=== PATIENT | male | born 1935 | race Caucasian/White ===

== ENCOUNTER 2017-06-23 01:17 | Inpatient (IN) | payer OTHER ==
[~2017-06-23] VITALS: Ht 180.3 cm; Wt 69.9 kg
[2017-06-23] VITALS (12 sets, daily range): BP systolic 123–142; BP diastolic 63–81; PULSE 66–132; TEMP 36.4–37; O2SAT 92–99; Ht 180.3 cm; Wt 69.9 kg
[~2017-06-23 01:17] MED LIST: CYAN500T13 PO; CZR25 PO; DILT40TA2 PO; FRRG PO; INSDGI SC; JNVUNK PO
[2017-06-23] MEDS ORDERED: GI COCKTAIL PO STA (01:39)
[2017-06-23] MEDS ORDERED: RANITIDINE HCL SYRUP 150 MG/10 ML UDC PO ONE (01:45)
[2017-06-23] MEDS ORDERED: PANT40TA PO (01:55)
[2017-06-23] MEDS ORDERED: METO25TA3 PO (01:55)
[2017-06-23] MEDS ORDERED: INSDGIPEN SC (01:55)
[2017-06-23] MEDS ORDERED: VALS40TA2 PO (01:57)
[2017-06-23] MEDS ORDERED: FRS/40 PO (01:57)
[2017-06-23] MEDS ORDERED: METO5TAB5 PO (01:57)
[2017-06-23] MEDS ORDERED: DOCU-94 PO (01:58)
[2017-06-23] MEDS ORDERED: CYAN500T13 PO (01:58)
[2017-06-23] MEDS ORDERED: UMEC1AER PO (01:58)
[2017-06-23] MEDS ORDERED: IRONCAP18 PO (01:59)
[2017-06-23] MEDS ORDERED: VGR50 PO (01:59)
[2017-06-23 02:09] LABS: INR 1.2 (0.9-1.1); PARTIAL THROMBOPLASTIN RATIO 1.2; PROTHROMBIN TIME (PATIENT) 13.3 SECONDS (9.0-12.0)
--- NOTE | 2017-06-23 02:10 | EMERGENCY ROOM VISIT NOTE ---
History Report prepared by Sunitha: Al Marina Under the Supervision of: Dr. Dominic Srivastava M.D. First contact with patient: 01:21 Stated Complaint: RECTAL BLEED, NOSE BLEED, ANEMIA History of Present Illness The patient is a 81 year old male who presents to the Emergency Room with complaints of intermittent rectal bleeding beginning about a year ago. He has a history of Von-Willebrand's Disease and estimates that he has some rectal bleeding every four months or so. He was seen at the [facility] ED for a bloody nose, and was transferred to the [facility] ED upon mentioning that he has been having rectal bleeding. The patient was found to have a hemoglobin of 7.4. He denies any nausea, vomiting, chest pain, abdominal pain, or SOB. He states that his current rectal bleeding began a few hours ago this evening. The patient states that his most recent endoscopy and colonoscopy were around five months ago. Source of History: patient Onset: About a year ago Position: other (rectum) Symptom Intensity: Hemoglobin of 7.4 Quality: other (bleeding) Timing: intermittent Associated Symptoms: No chest pain, No SOB, No nausea, No vomiting, No abdominal pain Review of Systems See HPI for pertinent positives & negatives. A total of 10 systems reviewed and were otherwise negative. 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 Social History Alcohol Use: occasionally Housing Status: lives with family Occupation Status: employed Current/Historical Medications Scheduled Cyanocobalamin (Vitamin B12 500MCG), 500 MCG PO DAILY Docusate Sodium (Colace), 1 CAP PO BID Furosemide (Lasix), 40 MG PO DAILY Insulin Glargine (Lantus Solostar), 20 UNITS SC QPM Iron W/ Folic Acid & Vit B12 (Iron Formula), 65 MG PO DAILY Metolazone (Zaroxolyn), 5 MG PO WK Metoprolol Succ (Toprol Xl) (Toprol-Xl), 25 MG PO DAILY Pantoprazole (Protonix), 40 MG PO DAILY Umeclidinium-Vilanterol (Anoro Ellipta 62.5-25 Mcg/INH), 1 INHA PO DAILY Valsartan (Diovan), 40 MG PO DAILY Scheduled PRN Sildenafil Citrate (Viagra), 50 MG PO UD PRN for UNDECIDED Allergies Coded Allergies: No Known Allergies (Verified , 06/23/17) Physical Exam Vital Signs Date Time Temp Pulse Resp B/P (MAP) Pulse Ox O2 Delivery O2 Flow Rate FiO2 06/23/17 02:31 103 23 128/84 94 Room Air 06/23/17 02:17 110 20 97 Room Air 06/23/17 02:02 99/66 06/23/17 01:47 117 22 92 Room Air 06/23/17 01:31 102 06/23/17 01:28 122 18 121/83 95 Room Air 06/23/17 01:23 121/83 Physical Exam GENERAL: Patient is well appearing and in no acute distress. HEENT: No acute trauma, normocephalic atraumatic, mucous membranes moist, no nasal congestion, no scleral icterus. left nares Rhino Rocket in place. NECK: No stridor, no adenopathy, no meningismus, trachea is midline. LUNGS: No dyspnea. Clear to auscultation and equal bilaterally. No wheeze, no rhonchi. HEART: Tachycardic rate with an irregular rhythm. No murmurs, rubs, gallops appreciated. ABDOMEN: Soft, nontender, bowel sounds positive, no masses appreciated, no peritonitis. BACK: No midline tenderness, no CVA tenderness EXTREMITIES: Normal motion all extremities, no cyanosis, no edema. Peripheral vascular disease. NEUROLOGIC: Alert and oriented, no acute motor or sensory deficits, no focal weakness, cranial nerves grossly intact. SKIN: No rash, no jaundice, no diaphoresis. Medical Decision & Procedures Laboratory Results 06/23/17 01:44 Red Blood Count 2.19, Mean Corpuscular Volume 94.5, Mean Corpuscular Hemoglobin 31.5, Mean Corpuscular Hemoglobin Concent 33.3, Mean Platelet Volume 10.9, Neutrophils (%) (Auto) 85.6, Lymphocytes (%) (Auto) 7.6, Monocytes (%) (Auto) 5.8, Eosinophils (%) (Auto) 0.4, Basophils (%) (Auto) 0.2, Neutrophils # (Auto) 4.30, Lymphocytes # (Auto) 0.38, Monocytes # (Auto) 0.29, Eosinophils # (Auto) 0.02, Basophils # (Auto) 0.01 06/23/17 01:44 Test 06/23/17 01:44 White Blood Count 5.02 K/uL (4.8-10.8) Red Blood Count 2.19 M/uL (4.7-6.1) Hemoglobin 6.9 g/dL (14.0-18.0) Hematocrit 20.7 % (42-52) Mean Corpuscular Volume 94.5 fL (80-100) Mean Corpuscular Hemoglobin 31.5 pg (25-34) Mean Corpuscular Hemoglobin Concent 33.3 g/dl (32-36) Platelet Count 61 K/uL (130-400) Mean Platelet Volume 10.9 fL (7.4-10.4) Neutrophils (%) (Auto) 85.6 % Lymphocytes (%) (Auto) 7.6 % Monocytes (%) (Auto) 5.8 % Eosinophils (%) (Auto) 0.4 % Basophils (%) (Auto) 0.2 % Neutrophils # (Auto) 4.30 K/uL (1.4-6.5) Lymphocytes # (Auto) 0.38 K/uL (1.2-3.4) Monocytes # (Auto) 0.29 K/uL (0.11-0.59) Eosinophils # (Auto) 0.02 K/uL (0-0.5) Basophils # (Auto) 0.01 K/uL (0-0.2) RDW Standard Deviation 50.9 fL (36.4-46.3) RDW Coefficient of Variation 14.9 % (11.5-14.5) Immature Granulocyte % (Auto) 0.4 % Immature Granulocyte # (Auto) 0.02 K/uL (0.00-0.02) Platelet Estimate DECREASED Red Blood Cell Morphology Unremarkable Prothrombin Time 13.3 SECONDS (9.0-12.0) Prothromb Time International Ratio 1.2 (0.9-1.1) Activated Partial Thromboplast Time 31.0 SECONDS (21.0-31.0) Partial Thromboplastin Ratio 1.2 Anion Gap 6.0 mmol/L (3-11) Estimated GFR () 26.7 Estimated GFR (Non- 23.0 BUN/Creatinine Ratio 25.8 (10-20) Calcium Level 8.2 mg/dl (8.5-10.1) Troponin I 0.017 ng/ml (0-0.045) Beta-Hydroxybutyric Acid 9.67 mg/dL (0.2-2.81) Laboratory results as reviewed by me. ECG Indication: other (Rectal bleed) Rate (beats per minute): 111 Rhythm: atrial fibrillation (with RVR) Findings: no acute ischemic change ED Course 0120: The patient was evaluated in room A9B. A complete history and physical exam was performed. 0146: I reassessed the patient. He is feeling fine. His heart rate is in the 90' s and irregular. 0205: Upon reevaluation, the patient is resting comfortably. Discussed results and treatment plan with the patient. He verbalized understanding and agreement with the treatment plan. The patient will be evaluated for further management. Medical Decision Differential: Diverticulitis, AVM, Coagulopathy, Colitis, Malignancy, Upper GI bleed, Fissure, Hemorrhoids, amongst other pathologies entertained. 81 yr old male arrives from local hospital for evaluation of anemia. Long history of anemia with known VWF and every 4 to 5 months requires transfusion ( which is about how long last transfusion is). Noted anemia at ED visit after being seen for left nares epistaxis and noting single episode of blood in stool. Unable to be treated at OSH thus transferred here for further evaluation as [place] where he usually goes was full. Arrives hemodynamically stable with just mild tachy. Anemic and thus will hold off on fluids other than blood transfusion. Mildly SBP after relaxing a bit but MAP good and no symptoms thus will still await PRBCs. Cr at 2.5, which unclear if baseline though was mildly elevated over 5 yrs ago when last here. He is without complaints and in no distress. No epigastric pain, it was scant red blood without black/tarry stools. I do not feel starting PPI immediately necessary. Will bring in to hospitalist service for further work-up and evaluation. Medication Reconcilliation Current Medication List: was personally reviewed by me Blood Pressure Screening Patient's blood pressure: Normal blood pressure Blood pressure disposition: Did not require urgent referral Consults Time Called: 020 Consulting Physician: Dr. Enrique Hyatt Returned Call: [phone] Discussed the patient's case. The patient will be evaluated for further treatment and disposition. Impression Primary Impression: Anemia Additional Impressions: GI bleed Epistaxis Scribe Attestation The scribe's documentation has been prepared under my direction and personally reviewed by me in its entirety. I confirm that the note above accurately reflects all work, treatment, procedures, and medical decision making performed by me. Departure Information Dispostion Being Evaluated By Hospitalist Referrals Jairon Hammer D.O. (PCP) Problem Qualifiers
[2017-06-23 02:20] LABS: BLOOD UREA NITROGEN 64 mg/dl (7-18); BUN/CREATININE RATIO 25.8 (10-20); CALCIUM 8.2 mg/dl (8.5-10.1); CARBON DIOXIDE 32 mmol/L (21-32); CHLORIDE 101 mmol/L (98-107); GLUCOSE 306 mg/dl (70-99); POTASSIUM 5.1 mmol/L (3.5-5.1); SODIUM 139 mmol/L (136-145)
[2017-06-23 02:25] LABS: HEMATOCRIT 20.7 % (42-52); MEAN CELL VOLUME 94.5 fL (80-100); MEAN CORPUSCULAR HEMOGLOBIN 31.5 pg (25-34); MEAN CORPUSCULAR HGB CONC 33.3 g/dl (32-36); MEAN PLATELET VOLUME 10.9 fL (7.4-10.4); PLATELET COUNT 61 K/uL (130-400); RED BLOOD COUNT 2.19 M/uL (4.7-6.1); WHITE BLOOD COUNT 5.02 K/uL (4.8-10.8)
[2017-06-23 02:30] LABS: BASO % 0.2 %; BASO ABS # 0.01 K/uL (0-0.2); BETA-HYDROXYBUTYRATE 9.67 mg/dL (0.2-2.81); COMPLETE YES; EOS % 0.4 %; IG% 0.4 %; LYMPH % 7.6 %; LYMPH ABS # 0.38 K/uL (1.2-3.4); MONO % 5.8 %; NEUT % 85.6 %; PLT ESTIMATE DECREASED
[2017-06-23] MEDS ORDERED: ONDANSETRON INJ 2 MG/ML 2 ML VIAL IV PRN (02:30)
[2017-06-23] MEDS ORDERED: ACETAMINOPHEN 325 MG TAB PO PRN (02:30)
--- NOTE | 2017-06-23 02:32 | History and Physical ---
History & Physical Date & Time of Service: Jun 23, 2017 at 02:32 . Chief Complaint: nose bleed . Primary Care Physician: Jairon Hammer D.O. History of Present Illness Source: patient, hospital records 81-year-old male from [place], followed by Dr. Hammer. History of coronary artery disease, chronic atrial fibrillation, von Willebrand' s disease, and other problems noted below. In recent years, he has had multiple episodes of anemia associated with heme- positive stools. He has undergone at least 3 EGDs, 2 colonoscopies, and capsule enteroscopy without an apparent source of bleeding. He has had intermittent episodes of epistaxis over the years, sometimes requiring electrocautery. Developed spontaneous epistaxis of left nostril last evening around 9 PM. He went to the ED at [facility]. Rhino Rocket was placed. Received DDAVP. Was found to be anemic. Patient has noted a small amount of rectal bleeding over the past few days. No abdominal pain, nausea, vomiting, hematemesis. He does not use any aspirin, NSAID's, or anticoagulants. Drinks one glass of wine per day. He is experiencing dyspnea on exertion, somewhat worse than baseline. No chest pain. Arrangements made for transfer to [facility] for further evaluation and management. . Past Medical/Surgical History Chronic and Resolved Medical Problems: (1) Atrial fibrillation Status: Chronic (2) Atrial fibrillation, chronic Status: Chronic (3) Coronary artery disease Status: Chronic (4) History of colonic polyps Status: Chronic (5) History of gastrointestinal bleeding Permanent Comment: EGD x 3, colonoscopy x 2, capsule endoscopy- no apparent source of bleeding Status: Chronic (6) History of pulmonary embolism Status: Chronic (7) History retroperitoneal hemorrhage Status: Chronic (8) HTN (hypertension) Status: Chronic (9) Pulmonary hypertension Status: Chronic (10) Status post iliac aneurysm repair Status: Chronic (11) Thrombocytopenia Status: Chronic (12) Tricuspid regurgitation Status: Chronic (13) Von Willebrand disease Status: Chronic Surgical Problems: (1) Status post abdominal aortic aneurysm (AAA) repair Status: Chronic (2) Status post coronary artery stent placement Status: Chronic (3) Status post insertion of inferior vena caval filter Status: Chronic . Family History FATHER Bleeding disorder MOTHER Breast cancer DAUGHTER Bleeding disorder DAUGHTER Bleeding disorder SON Bleeding disorder GRANDFATHER Bleeding disorder GRANDMOTHER Bleeding disorder Social History Smoking Status: Former Smoker Smokeless Tobacco Use: Yes Alcohol Use: 1 glass of wine daily Occupational Status: employed Immunizations History of Influenza Vaccine: N/A Influenza Vaccine Date: Jun 05, 2008 History of Tetanus Vaccine?: UNSURE History of Pneumococcal: No Pneumococcal Date: Mar 20, 2008 History of Hepatitis B Vaccine: No Allergies Coded Allergies: No Known Allergies (Verified , 06/23/17) Home Medications Scheduled Cyanocobalamin (Vitamin B12 500MCG), 500 MCG PO DAILY Docusate Sodium (Colace), 1 CAP PO BID Furosemide (Lasix), 40 MG PO DAILY Insulin Glargine (Lantus Solostar), 20 UNITS SC QPM Iron W/ Folic Acid & Vit B12 (Iron Formula), 65 MG PO DAILY Metolazone (Zaroxolyn), 5 MG PO WK Metoprolol Succ (Toprol Xl) (Toprol-Xl), 25 MG PO DAILY Pantoprazole (Protonix), 40 MG PO DAILY Umeclidinium-Vilanterol (Anoro Ellipta 62.5-25 Mcg/INH), 1 INHA PO DAILY Valsartan (Diovan), 40 MG PO DAILY Scheduled PRN Sildenafil Citrate (Viagra), 50 MG PO UD PRN for UNDECIDED Review of Systems Constitutional: No fever, No weight loss Eyes: No worsening of vision ENT: + problem reported (as noted in HPI) Respiratory: + dyspnea on exertion, No cough Cardiovascular: No chest pain, No edema Abdomen: + problem reported (as noted in HPI) Musculoskeletal: + joint pain (back) Genitourinary - Male: No hematuria, No dysuria Neurologic: + problem reported (no headaches) Endocrine: + fatigue, + problem reported (blood sugars fluctuate) Hematologic / Lymphatic: + abnormal bleeding/bruising (bruises easily) Integumentary: No rash, No new/changing skin lesions Physical Exam Vital Signs Date Time Temp Pulse Resp B/P (MAP) Pulse Ox O2 Delivery O2 Flow Rate FiO2 06/23/17 01:31 102 06/23/17 01:28 122 18 121/83 95 Room Air General Appearance: WD/WN, no apparent distress Head: normocephalic, atraumatic Eyes: PERRL, EOMI, sclerae normal, + pertinent finding (conjunctivae pale) ENT: hearing grossly normal, + pertinent finding (Rhino Rocket left nostril) Neck: supple, no adenopathy, thyroid normal, trachea midline Respiratory/Chest: no respiratory distress, no accessory muscle use, + pertinent finding (few rales right base) Cardiovascular: no edema, no JVD, + systolic murmur (III/ systolic murmur left sternal border), + irregularly irregular, + abnormal peripheral pulses ( diminished pedal pulses) Abdomen/GI: normal bowel sounds, non tender, soft, no organomegaly, no pulsatile mass Extremities/Musculoskelatal: no calf tenderness, + pertinent finding (motor strenth upper and lower extremities intact) 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 as tested (PERRL, EOMI, no dysarthria, no aphasia, tongue midline), no motor/sensory deficits (motor strength upper and lower extremities intact), alert, normal mood/affect, oriented x 3 Skin: warm/dry, + pertinent finding (chronic venous stasis changes lower extremities) Lymphatic: no adenopathy (cervical) Diagnostics Laboratory Results Results Past 24 Hours Test 06/23/17 01:44 Range/Units White Blood Count 5.02 4.8-10.8 K/uL Red Blood Count 2.19 4.7-6.1 M/uL Hemoglobin 6.9 14.0-18.0 g/dL Hematocrit 20.7 42-52 % Mean Corpuscular Volume 94.5 80-100 fL Mean Corpuscular Hemoglobin 31.5 25-34 pg Mean Corpuscular Hemoglobin Concent 33.3 32-36 g/dl Platelet Count 61 130-400 K/uL Mean Platelet Volume 10.9 7.4-10.4 fL Neutrophils (%) (Auto) 85.6 % Lymphocytes (%) (Auto) 7.6 % Monocytes (%) (Auto) 5.8 % Eosinophils (%) (Auto) 0.4 % Basophils (%) (Auto) 0.2 % Neutrophils # (Auto) 4.30 1.4-6.5 K/uL Lymphocytes # (Auto) 0.38 1.2-3.4 K/uL Monocytes # (Auto) 0.29 0.11-0.59 K/uL Eosinophils # (Auto) 0.02 0-0.5 K/uL Basophils # (Auto) 0.01 0-0.2 K/uL RDW Standard Deviation 50.9 36.4-46.3 fL RDW Coefficient of Variation 14.9 11.5-14.5 % Immature Granulocyte % (Auto) 0.4 % Immature Granulocyte # (Auto) 0.02 0.00-0.02 K/uL Platelet Estimate DECREASED Red Blood Cell Morphology Unremarkable Prothrombin Time 13.3 9.0-12.0 SECONDS Prothromb Time International Ratio 1.2 0.9-1.1 Activated Partial Thromboplast Time 31.0 21.0-31.0 SECONDS Partial Thromboplastin Ratio 1.2 Sodium Level 139 136-145 mmol/L Potassium Level 5.1 3.5-5.1 mmol/L Chloride Level 101 98-107 mmol/L Carbon Dioxide Level 32 21-32 mmol/L Anion Gap 6.0 3-11 mmol/L Blood Urea Nitrogen 64 7-18 mg/dl Creatinine 2.50 0.60-1.40 mg/dl Estimated GFR () 26.7 Estimated GFR (Non- 23.0 BUN/Creatinine Ratio 25.8 10-20 Random Glucose 306 70-99 mg/dl Calcium Level 8.2 8.5-10.1 mg/dl Troponin I 0.017 0-0.045 ng/ml Beta-Hydroxybutyric Acid 9.67 0.2-2.81 mg/dL Impression Assessment and Plan RECURRENT ANEMIA History of recurrent anemia, requiring multiple transfusions over the years. Underlying von Willebrand's disease. Hemoglobin now 6.9. Hemodynamically stable. Most likely secondary to chronic GI blood loss. Patient reports mild rectal bleeding the past few days, nothing unusual for him. Also experiencing some epistaxis. Has undergone 3 endoscopies, 2 colonoscopies, and capsule endoscopy over the past several years without apparent source of bleeding. GI blood loss most likely secondary to combination of AVMs + von Willebrand's disease. Transfuse to maintain adequate H/H; reasonable hemoglobin goal would be >9 per current guidelines given cardiopulmonary comorbidities.. No need for repeat endoscopic evaluation unless ongoing significant bleeding with hemodynamic instability. THROMBOCYTOPENIA Chronic. Follow. VON WILLEBRAND'S DISEASE Received DDAVP in [facility] ED. Consult Hematology if ongoing active bleeding. EPISTAXIS Hemostasis achieved with Rhino Rocket. Consult ENT. CORONARY ARTERY DISEASE No anginal symptoms. No antiplatelet drugs due to von Willebrand's disease and thrombocytopenia. Patient prefers not to take statins. Continue metoprolol. CHRONIC ATRIAL FIBRILLATION Usually rate-controlled on metoprolol. Tachycardic in ED- should improve with transfusion. No anticoagulants due to von Willebrand's disease and thrombocytopenia. HYPERTENSION Continue metoprolol. Hold valsartan until renal function improves. Follow and titrate Rx. COPD On home O2. Continue Anoro Ellipta or formulary equivalent. 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 Continue home O2. ACUTE KIDNEY INJURY Serum creatinine 2.5 compared to baseline of 1.5 on 05/13/12. CHELSEA could be secondary to volume depletion and / or anemia. Hold furosemide (although may be necessary to resume after transfusion). Avoid potential nephrotoxins when able. The Follow. DM TYPE 2, UNCONTROLLED History diabetes mellitus type 2 on insulin. Blood sugars fluctuating at home. Random blood sugar in ED 342. Missed dose of Lantus due to ED visit. Check Hgb 1C. Lantus / NovoLog per protocol. VTE PROPHYLAXIS History of pulmonary emboli, s/p IVC filter. No anticoagulants due to von Willebrand's disease and thrombocytopenia. SCD's. Ambulate. RESUSCITATION STATUS Discussed with patient. No living will. Full code. DISPOSITION Expected discharge to home. Medical follow-up with Dr. Hammer. . VTE Prophylaxis VTE Risk Assessment Done? Y/N: Yes Risk Level: Moderate Given or contraindicated: SCD's
[2017-06-23] MEDS ORDERED: INSULIN GLARGINE SOLOSTAR 100 UNITS/ML 3 ML PEN SC ONE (03:25)
[2017-06-23] MEDS ORDERED: INSULIN ASPART 100 UNITS/ML 3 ML PEN SC ONE (03:29)
[2017-06-23] MEDS ORDERED: GLUCOSE 10 TABS/TUBE PO PRN (03:45)
[2017-06-23] MEDS ORDERED: DEXTROSE 50% 50 ML SYR IV PRN (03:45)
[2017-06-23] MEDS ORDERED: GLUCOSE 40% GEL 15 GM TUBE PO PRN (03:45)
[2017-06-23] MEDS ORDERED: GLUCAGON FOR INJ 1 MG VIAL SQ PRN (03:45)
[2017-06-23] MEDS: PATIENT'S HEIGHT AND/OR WEIGHT NEEDED SCH ×4 (04:00→10:00)
[2017-06-23] MEDS: ANORO ELLIPTA~ORDER AWAITING ACTION SCH ×3 (07:36→23:05)
--- NOTE | 2017-06-23 07:36 | DIAGNOSTIC IMAGING REPORT ---
SINGLE VIEW CHEST CLINICAL HISTORY: Anemia. FINDINGS: An AP, portable, upright chest radiograph is compared to study dated 05/11/2012. The examination is degraded by portable technique and patient rotation. The heart is enlarged and there is atherosclerotic calcification of the thoracic aorta. There is prominence of the central pulmonary vasculature. There our small right and [id number] left pleural effusions with associated bibasilar consolidation. Linear atelectasis is present at the right lung base. Apical scarring is observed. No pneumothorax is seen. The skeletal structures are osteopenic. The bony thorax is grossly intact. An IVC filter is partially visualized in the upper abdomen. IMPRESSION: 1. Cardiomegaly with prominence of the central pulmonary vasculature. Correlate clinically for evidence of mild congestive failure. 2. Small right and [id number] left pleural effusions with associated bibasilar consolidation. This could represent atelectasis and/or an infectious/inflammatory pneumonitis. Clinical correlation will be required and radiographic follow-up to resolution is recommended. Electronically signed by: Juve Ba M.D. 06/23/2017 7:35 AM Dictated Date/Time: 06/23/2017 7:33 AM
[2017-06-23] MEDS: RANITIDINE IV 50 MG in DEXTROSE 5% 100ML 100 ML IV SCH ×2 (07:38→20:59)
[2017-06-23] MEDS: CYANOCOBALAMIN 500 MCG TAB (VIT B-12) PO SCH (07:39)
[2017-06-23] MEDS: PANTOprazole SOD 40 MG TAB PO SCH ×2 (07:39→20:57)
[2017-06-23] MEDS: DOCUSATE SODIUM 100 MG CAP PO SCH ×2 (07:39→20:57)
[2017-06-23] MEDS: METOPROLOL SUCC 25MG EXT REL TAB PO SCH (07:40)
[2017-06-23] MEDS: INSULIN ASPART 100 UNITS/ML 3 ML PEN SC SCH ×4 (07:42→21:07)
[2017-06-23] MEDS ORDERED: VALSARTAN 80 MG TAB PO SCH (09:00)
[2017-06-23] MEDS ORDERED: PANTOprazole SOD 40 MG TAB PO SCH (09:00)
[2017-06-23 10:22] LABS: HEMATOCRIT 22.3 % (42-52); HEMATOCRIT 22.6 % (42-52); MEAN CELL VOLUME 95.4 fL (80-100); MEAN CORPUSCULAR HEMOGLOBIN 30.4 pg (25-34); MEAN CORPUSCULAR HGB CONC 31.9 g/dl (32-36); RED BLOOD COUNT 2.37 M/uL (4.7-6.1); WHITE BLOOD COUNT 5.63 K/uL (4.8-10.8)
[2017-06-23 10:23] LABS: MEAN PLATELET VOLUME 10.3 fL (7.4-10.4); PLATELET COUNT 62 K/uL (130-400)
[2017-06-23 10:54] LABS: BUN/CREATININE RATIO 27.1 (10-20); CALCIUM 8.5 mg/dl (8.5-10.1); CREATININE 2.3 mg/dl (0.60-1.40); POTASSIUM 4.5 mmol/L (3.5-5.1)
--- NOTE | 2017-06-23 12:36 | Surgery Consultation ---
Consultation Date of Consultation: Jun 23, 2017. Attending Physician: Rajiv Cabrera M.D. History of Present Illness 81 yo male with history of von Willebrands disease transferred from [facility] after an episode of left sided epistaxis which was stopped in the [facility] with a pack. He was found to have Hgb of 6 at [facility] so has received PRBCs. Hospitalist service asked ENT to evaluate. Patient has a long history of intermittent epistaxis. Most recent episode started last night around 9pm after he blew his nose. There are no alleviating or exacerbating factors. No recent nasal trauma. He is not on any blood thinners. No other associated symptoms. Of note has been seen by GI service as outpatient for heme + stools. Past Medical/Surgical History Medical Problems: (1) Anemia Status: Acute (2) Epistaxis Status: Acute (3) GI bleed Status: Acute Family History Bleeding disorder FATHER DAUGHTER DAUGHTER SON GRANDFATHER GRANDMOTHER Breast cancer MOTHER Social History Smoking Status: Former Smoker Smokeless Tobacco Use: Yes Alcohol Use: 1 glass of wine daily Housing Status: lives with family Occupation Status: employed Allergies Coded Allergies: No Known Allergies (Verified , 06/23/17) Home Medications Scheduled Cyanocobalamin (Vitamin B12 500MCG), 500 MCG PO DAILY Docusate Sodium (Colace), 1 CAP PO BID Furosemide (Lasix), 40 MG PO DAILY Insulin Glargine (Lantus Solostar), 20 UNITS SC QPM Iron W/ Folic Acid & Vit B12 (Iron Formula), 65 MG PO DAILY Metolazone (Zaroxolyn), 5 MG PO WK Metoprolol Succ (Toprol Xl) (Toprol-Xl), 25 MG PO DAILY Pantoprazole (Protonix), 40 MG PO DAILY Umeclidinium-Vilanterol (Anoro Ellipta 62.5-25 Mcg/INH), 1 INHA PO DAILY Valsartan (Diovan), 40 MG PO DAILY Scheduled PRN Sildenafil Citrate (Viagra), 50 MG PO UD PRN for UNDECIDED Current Inpatient Medications Current Inpatient Medications Medications (Trade) Dose Ordered Sig/Lesly Route Start Time Stop Time Status Last Admin Dose Admin Ondansetron HCl (Zofran Inj) 4 mg Q6H PRN IV 06/23/17 02:30 07/23/17 02:29 Acetaminophen (Tylenol Tab) 650 mg Q4H PRN PO 06/23/17 03:30 07/23/17 03:29 Cyanocobalamin (Vitamin B-12 Tab) 500 mcg DAILY PO 06/23/17 09:00 07/23/17 08:59 06/23/17 07:39 500 MCG Docusate Sodium (coLACE CAP) 100 mg BID PO 06/23/17 09:00 07/23/17 08:59 06/23/17 07:39 100 MG Metoprolol Succinate (Toprol Xl Tab) 25 mg DAILY PO 06/23/17 09:00 07/23/17 08:59 06/23/17 07:40 25 MG Miscellaneous Information (Order Awaiting Action) 1 ea QS N/A 06/23/17 08:00 07/23/17 07:59 Insulin Glargine (Lantus Solostar Pen) Blood sugar Lantus... QPM SC 06/23/17 21:00 07/23/17 20:59 Insulin Aspart (novoLOG ASPART) SLIDING SCALE G... ACHS SC 06/23/17 07:00 07/23/17 06:59 06/23/17 12:18 2 UNITS Glucose (Glucose 40% Gel) 15-30 GRAMS 15 GRAMS... UD PRN PO 06/23/17 03:45 07/23/17 03:44 Glucose (Glucose Chew Tab) 4-8 Tablets 4 Tabl... UD PRN PO 06/23/17 03:45 07/23/17 03:44 Dextrose (Dextrose 50% 50ML Syringe) 25-50ML OF 50% DW IV FOR... UD PRN IV 06/23/17 03:45 07/23/17 03:44 Glucagon (Glucagon Inj) 1 mg UD PRN SQ 06/23/17 03:45 07/23/17 03:44 Pantoprazole Sodium (Protonix Tab) 40 mg BID PO 06/23/17 09:00 07/23/17 08:59 06/23/17 07:39 40 MG Ranitidine HCl 50 mg/Dextrose 102 ml @ 200 mls/hr Q12 IV 06/23/17 09:00 07/23/17 08:59 06/23/17 07:38 200 MLS/HR Amoxicillin/ Clavulanate Potassium (Augmentin Tab) 875 mg BIDM PO 06/23/17 16:45 07/03/17 16:44 Review of Systems Constitutional: No fever, No chills, No sweats, No weight loss, No weakness, No fatigue, No problem reported Eyes: No worsening of vision, No eye pain, No redness, No discharge, No diplopia, No problem reported ENT: + unusual epistaxis Respiratory: + shortness of breath, + dyspnea on exertion Cardiovascular: No chest pain, No orthopnea, No PND, No edema, No claudication , No palpitations, No problem reported Musculoskeletal: No joint pain, No muscle pain, No swelling, No calf pain, No problem reported Neurologic: No memory loss, No paralysis, No weakness, No numbness/tingling, No vertigo, No balance problems, No problem reported Endocrine: + fatigue Hematologic / Lymphatic: + abnormal bleeding/bruising, + clotting problems Integumentary: No rash, No itch, No new/changing skin lesions, No color change , No bleeding, No problem reported Allergic / Immunologic: No environmental allergies, No seasonal allergies, No pet sensitivities, No food allergies, No hives, No frequent infections, No poor healing, No prolonged convalescence, No problem reported Physical Exam Date Time Temp Pulse Resp B/P (MAP) Pulse Ox O2 Delivery O2 Flow Rate FiO2 06/23/17 12:25 36.9 78 18 123/68 (86) 99 06/23/17 12:00 93 Room Air 3.0 06/23/17 08:02 36.7 66 18 134/63 (86) 98 06/23/17 08:00 93 Room Air 3.0 06/23/17 06:15 36.6 92 134/66 93 3.0 06/23/17 05:15 36.7 90 132/73 98 3.0 06/23/17 04:45 36.7 80 130/81 94 3.0 06/23/17 04:30 36.9 100 125/75 92 06/23/17 03:40 36.6 132 18 125/80 95 Room Air 06/23/17 02:50 103 23 128/84 94 06/23/17 02:31 103 23 128/84 94 Room Air 06/23/17 02:17 110 20 97 Room Air 06/23/17 02:02 99/66 06/23/17 01:47 117 22 92 Room Air 06/23/17 01:31 102 06/23/17 01:28 122 18 121/83 95 Room Air 06/23/17 01:23 121/83 General Appearance: WD/WN, no apparent distress Head: normocephalic, atraumatic Eyes: normal inspection, PERRL, EOMI ENT: + pertinent finding (left nare with balloon packing in place. No bleeding. Posterior pharyngeal wall without any bleeding. 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4 % Basophils (%) (Auto) 0.2 % Neutrophils # (Auto) 4.30 K/uL Lymphocytes # (Auto) 0.38 K/uL Monocytes # (Auto) 0.29 K/uL Eosinophils # (Auto) 0.02 K/uL Basophils # (Auto) 0.01 K/uL RDW Standard Deviation 50.9 fL 50.9 fL RDW Coefficient of Variation 14.9 % 14.8 % Immature Granulocyte % (Auto) 0.4 % Immature Granulocyte # (Auto) 0.02 K/uL Platelet Estimate DECREASED Red Blood Cell Morphology Unremarkable Prothrombin Time 13.3 SECONDS Prothromb Time International Ratio 1.2 Activated Partial Thromboplast Time 31.0 SECONDS Partial Thromboplastin Ratio 1.2 Sodium Level 139 mmol/L 140 mmol/L Potassium Level 5.1 mmol/L 4.5 mmol/L Chloride Level 101 mmol/L 102 mmol/L Carbon Dioxide Level 32 mmol/L 34 mmol/L Anion Gap 6.0 mmol/L 4.0 mmol/L Blood Urea Nitrogen 64 mg/dl 62 mg/dl Creatinine 2.50 mg/dl 2.30 mg/dl Estimated GFR () 26.7 29.5 Estimated GFR (Non- 23.0 25.5 BUN/Creatinine Ratio 25.8 27.1 Random Glucose 306 mg/dl 207 mg/dl Calcium Level 8.2 mg/dl 8.5 mg/dl Troponin I 0.017 ng/ml Beta-Hydroxybutyric Acid 9.67 mg/dL Bedside Glucose 342 mg/dl 282 mg/dl Est Creatinine Clear Calc Drug Dose 23.6 ml/min Assessment & Plan 81 yo male with von Willebrand disease, left sided epistaxis controlled with pack placed at [facility] who is anemic - with his history of bleeding disorder, pack needs to stay in place for 5-7 days - recommend antibiotics while pack in place - management of anemia per medical services - if patient discharged, can follow up in ENT office at [facility] on Wednesday for packing removal
--- NOTE | 2017-06-23 13:22 | Gastrointestinal Consultation ---
Gastrointestinal Consultation Date of Consultation: Jun 23, 2017 Attending Physician: Rick Consulting Physician: Zay Reason for Consultation: HEME + STOOL, ANEMIA History of Present Illness Patient is a 81 year old male w/ history of CAD, Chronic anemia requiring transfusion with history of recurrent melena, HTN, AFIB, Von Willebrands and others listed below who was transferred from [facility] for management of epistaxis and anemia. GI was consulted for evaluation of anemia and painless rectal bleeding. Pt was seen and evaluated, chart was reviewed. Pt tells me he often has BRBPR. He tells me this has been evaluated x 6 times with EGD/ Colonoscopy and VCE without any source of GIB identified. Pt reports starting two days ago he had BRBPR without any abdominal pain. Blood filled the toilet bowel. No rectal pain, there has been some clots. He denies any dark, tarry stools. Denies any upper GI symptoms. Developed severe epistaxis x 1 days. Colon/EGD 2015 [facility]: WNL per patient EGD 2011 VCE 2011 Past Medical/Surgical History Medical Problems: (1) Anemia Status: Acute (2) Epistaxis Status: Acute (3) GI bleed Status: Acute Past Medical History: CAD, Chronic anemia requiring transfusion with history of recurrent melena, HTN , AFIB, Von Willebrands, thrombocytopenia, history of PE Past Surgical History: EGD, colonoscopy, capsule endoscopy, Femoral Iliac Aneurysm Repair, Cardiac cath with stent placement, Orthopedic surgery, AAA repair Family History Bleeding disorder FATHER DAUGHTER DAUGHTER SON GRANDFATHER GRANDMOTHER Breast cancer MOTHER Social History Smoking Status: Former Smoker Alcohol Use: occasionally Housing Status: lives with family Occupation Status: employed Allergies Coded Allergies: No Known Allergies (Verified , 06/23/17) Current Medications Home Meds and Scripts Medications Dose Route/Sig Max Daily Dose Days Date Category Dose Instructions Iron Formula (Iron W/ Folic Acid & Vit B12) 1 Cap Cap 65 Mg PO DAILY 06/23/17 Reported Viagra (Sildenafil Citrate) 50 Mg Tab 50 Mg PO UD PRN 06/23/17 Reported Anoro Ellipta 62.5-25 Mcg/INH (Umeclidinium-Vilanterol) 1 Aer Aer 1 Inha PO DAILY 06/23/17 Reported Vitamin B12 500MCG (Cyanocobalamin) 500 Mcg Tab 500 Mcg PO DAILY 06/23/17 Reported Colace (Docusate Sodium) 100 Mg Cap 1 Cap PO BID 06/23/17 Reported Zaroxolyn (Metolazone) 5 Mg Tab 5 Mg PO WK 06/23/17 Reported THURSDAYS Lasix (Furosemide) 40 Mg Tab 40 Mg PO DAILY 06/23/17 Reported Diovan (Valsartan) 40 Mg Tab 40 Mg PO DAILY 06/23/17 Reported Protonix (Pantoprazole Sodium) 40 Mg Tab 40 Mg PO DAILY 06/23/17 Reported Toprol-Xl (Metoprolol Succinate) 25 Mg Tabcr 25 Mg PO DAILY 06/23/17 Reported Lantus Solostar (Insulin Glargine) 100 Unit/Ml Inj 20 Units SC QPM 06/23/17 Reported Review of Systems Constitutional: No fever, No chills ENT: No hearing loss Respiratory: No cough, No shortness of breath Cardiac: No chest pain Abdomen: + GI bleeding, No pain, No nausea, No vomiting, No diarrhea, No constipation Physical Exam Date Time Temp Pulse Resp B/P (MAP) Pulse Ox O2 Delivery O2 Flow Rate FiO2 06/23/17 12:25 36.9 78 18 123/68 (86) 99 06/23/17 12:00 93 Room Air 3.0 06/23/17 08:02 36.7 66 18 134/63 (86) 98 06/23/17 08:00 93 Room Air 3.0 06/23/17 06:15 36.6 92 134/66 93 3.0 06/23/17 05:15 36.7 90 132/73 98 3.0 06/23/17 04:45 36.7 80 130/81 94 3.0 06/23/17 04:30 36.9 100 125/75 92 06/23/17 03:40 36.6 132 18 125/80 95 Room Air 06/23/17 02:50 103 23 128/84 94 06/23/17 02:31 103 23 128/84 94 Room Air 06/23/17 02:17 110 20 97 Room Air 06/23/17 02:02 99/66 06/23/17 01:47 117 22 92 Room Air 06/23/17 01:31 102 06/23/17 01:28 122 18 121/83 95 Room Air 06/23/17 01:23 121/83 General Appearance: no apparent distress (pt is upright in bed) Eyes: PERRL ENT: hearing grossly normal, + pertinent finding (packing intact in left nare) Respiratory/Chest: lungs clear, normal breath sounds Cardiovascular: + systolic murmur, + irregularly irregular Abdomen: normal bowel sounds, non tender, soft, no organomegaly, no pulsatile mass Neurologic/Psych: alert, normal mood/affect, oriented x 3 Skin: normal color, no jaundice Laboratory Results Last 24 Hours Test 06/23/17 01:44 06/23/17 04:37 06/23/17 06:39 06/23/17 09:47 White Blood Count 5.02 K/uL 5.63 K/uL Red Blood Count 2.19 M/uL 2.37 M/uL Hemoglobin 6.9 g/dL 7.2 g/dL Hematocrit 20.7 % 22.6 % Mean Corpuscular Volume 94.5 fL 95.4 fL Mean Corpuscular Hemoglobin 31.5 pg 30.4 pg Mean Corpuscular Hemoglobin Concent 33.3 g/dl 31.9 g/dl Platelet Count 61 K/uL 62 K/uL Mean Platelet Volume 10.9 fL 10.3 fL Neutrophils (%) (Auto) 85.6 % Lymphocytes (%) (Auto) 7.6 % Monocytes (%) (Auto) 5.8 % Eosinophils (%) (Auto) 0.4 % Basophils (%) (Auto) 0.2 % Neutrophils # (Auto) 4.30 K/uL Lymphocytes # (Auto) 0.38 K/uL Monocytes # (Auto) 0.29 K/uL Eosinophils # (Auto) 0.02 K/uL Basophils # (Auto) 0.01 K/uL RDW Standard Deviation 50.9 fL 50.9 fL RDW Coefficient of Variation 14.9 % 14.8 % Immature Granulocyte % (Auto) 0.4 % Immature Granulocyte # (Auto) 0.02 K/uL Platelet Estimate DECREASED Red Blood Cell Morphology Unremarkable Prothrombin Time 13.3 SECONDS Prothromb Time International Ratio 1.2 Activated Partial Thromboplast Time 31.0 SECONDS Partial Thromboplastin Ratio 1.2 Sodium Level 139 mmol/L 140 mmol/L Potassium Level 5.1 mmol/L 4.5 mmol/L Chloride Level 101 mmol/L 102 mmol/L Carbon Dioxide Level 32 mmol/L 34 mmol/L Anion Gap 6.0 mmol/L 4.0 mmol/L Blood Urea Nitrogen 64 mg/dl 62 mg/dl Creatinine 2.50 mg/dl 2.30 mg/dl Estimated GFR () 26.7 29.5 Estimated GFR (Non- 23.0 25.5 BUN/Creatinine Ratio 25.8 27.1 Random Glucose 306 mg/dl 207 mg/dl Calcium Level 8.2 mg/dl 8.5 mg/dl Troponin I 0.017 ng/ml Beta-Hydroxybutyric Acid 9.67 mg/dL Bedside Glucose 342 mg/dl 282 mg/dl Est Creatinine Clear Calc Drug Dose 23.6 ml/min Test 06/23/17 12:17 Bedside Glucose 203 mg/dl Impression Patient is a 81 year old male with epistaxis s/p packing and anemia with HGB 6.9 --> 1 unit --> 7.2 with history of chronic GI blood loss with intermittent melena and BRBPR. This has been evaluated x 5 days over the course of his life including EGD, colonoscopy and VCE without any source of GIB identified. Pt tells me his last procedures were completed at [facility] and were 1-2 years ago - they were normal per pt. Pt reports unintentional weight loss of about 15 lbs over the course of the past few months. Differentials diverticular, AVM, colonic polyp, epistaxis etc Plan Trend H&H Monitor stools Transfuse PRN Stool cx, stool c.diff No NSAIDs Given his underlying coagulopathy and extensive and unrewarding prior GI workups , would defer endoscopic evaluation at this time. GI to follow. Please call with questions/concerns. ATTESTATION: I have performed a history and physical examination of this patient and reviewed the electronic record. Specifically, on physical examination abdomen is soft and non tender. I have discussed the case with NORMA Walden. The above note reflects my findings, conclusions, and recommendations. Edy Collazo MD
[2017-06-23] MEDS: AMOXICILLIN/CLAVULANATE TAB 875 MG TAB PO SCH (17:33)
[2017-06-23 18:06] LABS: HEMATOCRIT 24.1 % (42-52); MEAN CELL VOLUME 95.3 fL (80-100); MEAN CORPUSCULAR HGB CONC 31.5 g/dl (32-36); RED BLOOD COUNT 2.53 M/uL (4.7-6.1); WHITE BLOOD COUNT 8.89 K/uL (4.8-10.8)
[2017-06-23 18:12] LABS: MEAN PLATELET VOLUME 9.8 fL (7.4-10.4); PLATELET COUNT 71 K/uL (130-400)
--- NOTE | 2017-06-23 18:18 | Progress Note ---
Progress Note Date of Service Jun 23, 2017. Progress Note 81 year old M admitted overnight with past medical history of hemophilia with epistaxis s/p packing with rhino rock s/p 1 unit of PRBC after presenting with Hgb 6.9 with mild increase in Hgb to 7.2. Patient evaluated by ENT with plans to keep rhino rock packing in place for now. GI have been consulted because patient has had history of multiple GI bleeds and patient informed me this morning that he noted blood in his stool. repeat CBC this evening 7.6. will continue to monitor patients CBC with ENT and GI following the patient on exam General: no acute distress, speaking in full sentences Nose: Rhino Rock packing in left nostril Lungs: CTABL Heart: regular and heart rate controlled Abdomen: soft, nontender, + bowel sounds Extremities: no swelling
[2017-06-23 18:31] LABS: BASO % 0.1 %; BASO ABS # 0.01 K/uL (0-0.2); COMPLETE YES; EOS % 0.4 %; IG% 0.3 %; LYMPH % 5.8 %; LYMPH ABS # 0.52 K/uL (1.2-3.4); MONO % 5.7 %; NEUT % 87.7 %
[2017-06-23] MEDS: ACETAMINOPHEN 325 MG TAB PO PRN (18:43)
[2017-06-23] MEDS ORDERED: INSULIN GLARGINE SOLOSTAR 100 UNITS/ML 3 ML PEN SC SCH (21:00)
[2017-06-23] MEDS: INSULIN GLARGINE SOLOSTAR 100 UNITS/ML 3 ML PEN SC SCH (21:08)
[2017-06-24] VITALS (11 sets, daily range): BP systolic 125–169; BP diastolic 72–89; PULSE 70–95; TEMP 36.3–36.8; O2SAT 92–98
[2017-06-24] MEDS: ACETAMINOPHEN 325 MG TAB PO PRN (03:05)
--- NOTE | 2017-06-24 06:33 | Clinical Documentation Query ---
CLINICAL DOCUMENTATION QUERY Most recent progress note states, "81 year old M admitted overnight with past medical history of hemophilia with epistaxis s/p packing with rhino rock s/p 1 unit of PRBC after presenting with Hgb 6.9 with mild increase in Hgb to 7.2. Patient evaluated by ENT with plans to keep rhino rock packing in place for now. GI have been consulted because patient has had history of multiple GI bleeds and patient informed me this morning that he noted blood in his stool. repeat CBC this evening 7.6. will continue to monitor patients CBC with ENT and GI following the patient." A professional surgical coder cannot assume a link between patients epistaxis and history of hemophilia. If there is a link it must be confirmed by physician. In your clinical opinion is this patient being managed for: (x ) Von Willebrand's disease/Hemophilia causing spontaneous epistaxis and chronic GI bleeding and acute blood loss. ( ) Not Agree Please clarify and document your clinical opinion in the progress notes and discharge summary. Terms such as "probable", "suspected", "likely", "questionable", "possible", or "still to be ruled out" are acceptable. IF IN AGREEMENT, YOU MUST DOCUMENT ABOVE DIAGNOSTIC STATEMENT IN DAILY PROGRESS NOTES AND DISCHARGE SUMMARY. This document is not part of the patient's record. Thank You, Alin Huber RN [phone]
[2017-06-24] MEDS: INSULIN ASPART 100 UNITS/ML 3 ML PEN SC SCH ×3 (07:00→21:11)
--- NOTE | 2017-06-24 07:29 | DIAGNOSTIC IMAGING REPORT ---
CHEST ONE VIEW PORTABLE CLINICAL HISTORY: Anemia. Congestive heart failure. COMPARISON STUDY: Chest radiograph June 23, 2017. FINDINGS: Mild cardiomegaly is noted. Pulmonary vascular congestion persists. Small right and [id number] left pleural effusions are unchanged. There are persistent bibasilar opacities. Right apical pleural fluid versus pleural thickening is noted. Patient is rotated. IMPRESSION: 1. No change in appearance of the chest. Pulmonary vascular congestion with bilateral pleural effusions, left larger than the right. 2. Right apical pleural opacity. This may reflect pleural fluid although should be assessed on subsequent exams to ensure resolution. Electronically signed by: Pablito Adams M.D. 06/24/2017 7:28 AM Dictated Date/Time: 06/24/2017 7:26 AM
[2017-06-24] MEDS: CYANOCOBALAMIN 500 MCG TAB (VIT B-12) PO SCH (07:33)
[2017-06-24] MEDS: DOCUSATE SODIUM 100 MG CAP PO SCH ×2 (07:33→21:00)
[2017-06-24] MEDS: PANTOprazole SOD 40 MG TAB PO SCH ×2 (07:33→21:13)
[2017-06-24] MEDS: ANORO ELLIPTA~ORDER AWAITING ACTION SCH ×2 (07:34→15:29)
[2017-06-24] MEDS: AMOXICILLIN/CLAVULANATE TAB 875 MG TAB PO SCH ×2 (07:34→17:35)
[2017-06-24] MEDS: METOPROLOL SUCC 25MG EXT REL TAB PO SCH (07:34)
[2017-06-24] MEDS: RANITIDINE IV 50 MG in DEXTROSE 5% 100ML 100 ML IV SCH ×2 (07:34→21:22)
[2017-06-24 07:59] LABS: HEMATOCRIT 21.7 % (42-52); MEAN CELL VOLUME 95.6 fL (80-100); MEAN CORPUSCULAR HGB CONC 31.3 g/dl (32-36); MEAN PLATELET VOLUME 10.4 fL (7.4-10.4); PLATELET COUNT 52 K/uL (130-400); RED BLOOD COUNT 2.27 M/uL (4.7-6.1)
[2017-06-24 08:12] LABS: CREATININE 1.9 mg/dl (0.60-1.40)
[2017-06-24 08:14] LABS: BUN/CREATININE RATIO 25.9 (10-20); CALCIUM 9.1 mg/dl (8.5-10.1); CREATININE 1.9 mg/dl (0.60-1.40); POTASSIUM 4.7 mmol/L (3.5-5.1)
[2017-06-24 14:21] LABS: HEMATOCRIT 24.4 % (42-52); MEAN CELL VOLUME 94.6 fL (80-100); MEAN CORPUSCULAR HEMOGLOBIN 30.6 pg (25-34); RED BLOOD COUNT 2.58 M/uL (4.7-6.1); WHITE BLOOD COUNT 6.01 K/uL (4.8-10.8)
[2017-06-24 14:23] LABS: MEAN CORPUSCULAR HGB CONC 32.4 g/dl (32-36); MEAN PLATELET VOLUME 10.4 fL (7.4-10.4); PLATELET COUNT 50 K/uL (130-400)
[2017-06-24 14:42] LABS: BASO % 0.2 %; BASO ABS # 0.01 K/uL (0-0.2); COMPLETE YES; IG% 0.5 %; LYMPH % 6.2 %; LYMPH ABS # 0.37 K/uL (1.2-3.4); MONO % 7.2 %; NEUT % 84.9 %
--- NOTE | 2017-06-24 18:58 | Progress Note ---
Internal Med Progress Note Date of Service: Jun 24, 2017. Provider Documentation: SUBJECTIVE: patient s/p 1 unit PRBC and again found to have hemoglobin drop requiring a 2nd unit of PRBC today. patient denies coughing blood or blood leaking through left nasal packing. denies bowel movement with blood OBJECTIVE: General: no acute distress, speaking in full sentences Head: normocephalic, atraumatic Eyes: EOMI, sclerae normal Nose: Rhino Rock packing in left nostril Lungs: CTABL, no respiratory distress, no accessory muscle use Heart: regular and heart rate controlled, no JVD, + systolic murmur (III/ systolic murmur left sternal border), Abdomen: soft, nontender, + bowel sounds Extremities: no swelling Neuro: no focal deficits ASSESSMENT & PLAN: 81 year old M with PMH of of recurrent anemia, requiring multiple transfusions over the years with underlying von Willebrand's disease and 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 Patient evaluated by ENT with plans to keep rhino rock packing in place for now. GI have been consulted because patient has had history of multiple GI bleeds and patient informed me this morning that he noted blood in his stool. repeat CBC this evening 7.6. In AM of 06/24/17 Hgb once again lowered to 6.8. Another unit of PRBC transfused and CBC repeat 7.9 Anemia likely secondary to blood loss unclear whether from epistaxis alone or in combination with GI bleed, now s/p 2 units of PRBC on this admission with ENT and GI service following, left nostril packing (rhino rocket) in place, send fecal occult blood stool VON WILLEBRAND'S DISEASE Received DDAVP in [facility] ED consult hemoncology to see if patinet further will benefit from DDAVP THROMBOCYTOPENIA, chronic. CORONARY ARTERY DISEASE No anginal symptoms. No antiplatelet drugs due to von Willebrand's disease and thrombocytopenia. start statin Continue metoprolol. CHRONIC ATRIAL FIBRILLATION Usually rate-controlled on metoprolol. Tachycardic in ED- should improve with transfusion. No anticoagulants due to von Willebrand's disease and thrombocytopenia. HYPERTENSION Continue metoprolol. Hold valsartan until renal function improves. Follow and titrate Rx. COPD On home O2. Continue Anoro Ellipta or formulary equivalent. 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 Continue home O2. ACUTE KIDNEY INJURY Serum creatinine 2.5 on admission compared to baseline of 1.5 on 05/13/12. Creatinine downtrending to 1.9 CHELSEA could be secondary to volume depletion and / or anemia. Hold furosemide (although may be necessary to resume after transfusion). Avoid potential nephrotoxins when able DM TYPE 2, UNCONTROLLED History diabetes mellitus type 2 on insulin. Blood sugars fluctuating at home. Random blood sugar in ED 342. Missed dose of Lantus due to ED visit. Check Hgb 1C. Lantus / NovoLog per protocol. VTE PROPHYLAXIS History of pulmonary emboli, s/p IVC filter. No anticoagulants due to von Willebrand's disease and thrombocytopenia. SCD's. Ambulate. RESUSCITATION STATUS Discussed with patient. No living will. Full code. DISPOSITION Expected discharge to home. Medical follow-up with Dr. Hammer. Vital Signs: Date Time Temp Pulse Resp B/P (MAP) Pulse Ox O2 Delivery O2 Flow Rate FiO2 06/24/17 16:00 Room Air 06/24/17 15:47 36.3 70 19 160/87 (111) 92 Room Air 06/24/17 12:00 93 Room Air 3.0 06/24/17 12:00 36.5 82 20 169/83 94 06/24/17 12:00 36.8 82 18 138/72 (94) 95 Room Air 06/24/17 10:54 36.4 84 18 165/89 06/24/17 10:00 36.5 90 20 139/75 94 06/24/17 09:30 36.5 82 18 130/74 94 06/24/17 09:14 36.8 85 20 125/77 94 06/24/17 08:59 36.4 80 20 128/75 98 06/24/17 08:00 93 Room Air 3.0 06/24/17 08:00 36.6 95 16 142/85 (104) 92 Nasal Cannula 2.0 06/24/17 04:00 Room Air 06/24/17 03:05 36.6 94 18 168/80 (109) 94 Room Air 06/23/17 23:59 Room Air 06/23/17 22:54 37.0 84 16 136/79 (98) 94 Room Air 06/23/17 20:00 37.0 18 129/79 (96) 95 Room Air 06/23/17 20:00 Room Air Lab Results: Results Past 24 Hours Test 06/23/17 20:26 06/24/17 06:46 06/24/17 07:21 06/24/17 11:36 Range/Units Bedside Glucose 219 75 213 70-99 mg/dl White Blood Count 5.80 4.8-10.8 K/uL Red Blood Count 2.27 4.7-6.1 M/uL Hemoglobin 6.8 14.0-18.0 g/dL Hematocrit 21.7 42-52 % Mean Corpuscular Volume 95.6 80-100 fL Mean Corpuscular Hemoglobin 30.0 25-34 pg Mean Corpuscular Hemoglobin Concent 31.3 32-36 g/dl RDW Standard Deviation 52.6 36.4-46.3 fL RDW Coefficient of Variation 15.2 11.5-14.5 % Platelet Count 52 130-400 K/uL Mean Platelet Volume 10.4 7.4-10.4 fL Sodium Level 141 136-145 mmol/L Potassium Level 4.7 3.5-5.1 mmol/L Chloride Level 103 98-107 mmol/L Carbon Dioxide Level 36 21-32 mmol/L Anion Gap 2.0 3-11 mmol/L Blood Urea Nitrogen 49 7-18 mg/dl Creatinine 1.90 0.60-1.40 mg/dl Est Creatinine Clear Calc Drug Dose 29.2 ml/min Estimated GFR () 37.2 Estimated GFR (Non- 32.1 BUN/Creatinine Ratio 25.9 10-20 Random Glucose 93 70-99 mg/dl Calcium Level 9.1 8.5-10.1 mg/dl Test 06/24/17 14:03 06/24/17 16:23 Range/Units White Blood Count 6.01 4.8-10.8 K/uL Red Blood Count 2.58 4.7-6.1 M/uL Hemoglobin 7.9 14.0-18.0 g/dL Hematocrit 24.4 42-52 % Mean Corpuscular Volume 94.6 80-100 fL Mean Corpuscular Hemoglobin 30.6 25-34 pg Mean Corpuscular Hemoglobin Concent 32.4 32-36 g/dl Platelet Count 50 130-400 K/uL Mean Platelet Volume 10.4 7.4-10.4 fL Neutrophils (%) (Auto) 84.9 % Lymphocytes (%) (Auto) 6.2 % Monocytes (%) (Auto) 7.2 % Eosinophils (%) (Auto) 1.0 % Basophils (%) (Auto) 0.2 % Neutrophils # (Auto) 5.11 1.4-6.5 K/uL Lymphocytes # (Auto) 0.37 1.2-3.4 K/uL Monocytes # (Auto) 0.43 0.11-0.59 K/uL Eosinophils # (Auto) 0.06 0-0.5 K/uL Basophils # (Auto) 0.01 0-0.2 K/uL RDW Standard Deviation 51.6 36.4-46.3 fL RDW Coefficient of Variation 15.1 11.5-14.5 % Immature Granulocyte % (Auto) 0.5 % Immature Granulocyte # (Auto) 0.03 0.00-0.02 K/uL Red Blood Cell Morphology Unremarkable Bedside Glucose 225 70-99 mg/dl Microbiology Results 06/24/17 C.difficile Toxin B Gene (PCR) - Final, Complete No C. difficile toxin B gene detected 06/24/17 Shiga Toxin Test, Received Pending 06/24/17 Stool Culture, Received Pending
[2017-06-24] MEDS ORDERED: ATORVASTATIN 40 MG TAB PO ONE (19:45)
[2017-06-24 21:11] LABS: MEAN CELL VOLUME 94.7 fL (80-100); MEAN CORPUSCULAR HEMOGLOBIN 29.9 pg (25-34); MEAN CORPUSCULAR HGB CONC 31.6 g/dl (32-36); RED BLOOD COUNT 2.64 M/uL (4.7-6.1); WHITE BLOOD COUNT 6.11 K/uL (4.8-10.8)
[2017-06-24] MEDS: INSULIN GLARGINE SOLOSTAR 100 UNITS/ML 3 ML PEN SC SCH (21:12)
[2017-06-24 21:21] LABS: MEAN PLATELET VOLUME 9.9 fL (7.4-10.4); PLATELET COUNT 51 K/uL (130-400)
[2017-06-24 21:57] LABS: ANISOCYTOSIS PRESENT; BASO % 0.2 %; BASO ABS # 0.01 K/uL (0-0.2); COMPLETE YES; IG% 0.5 %; LYMPH % 6.2 %; LYMPH ABS # 0.38 K/uL (1.2-3.4); MONO % 8.7 %; NEUT % 83.4 %
[2017-06-25] VITALS (7 sets, daily range): BP systolic 136–163; BP diastolic 80–90; PULSE 71–92; TEMP 36.6–36.8; O2SAT 92–94
[2017-06-25] MEDS: INSULIN ASPART 100 UNITS/ML 3 ML PEN SC SCH ×4 (07:00→20:42)
[2017-06-25 07:35] LABS: HEMATOCRIT 22.6 % (42-52); MEAN CELL VOLUME 93.4 fL (80-100); MEAN CORPUSCULAR HEMOGLOBIN 31.4 pg (25-34); MEAN CORPUSCULAR HGB CONC 33.6 g/dl (32-36); RED BLOOD COUNT 2.42 M/uL (4.7-6.1); WHITE BLOOD COUNT 5.38 K/uL (4.8-10.8)
[2017-06-25 07:41] LABS: MEAN PLATELET VOLUME 10.4 fL (7.4-10.4); PLATELET COUNT 54 K/uL (130-400)
[2017-06-25] MEDS: ANORO ELLIPTA~ORDER AWAITING ACTION SCH ×3 (07:47→16:00)
[2017-06-25] MEDS: DOCUSATE SODIUM 100 MG CAP PO SCH ×2 (08:13→20:40)
[2017-06-25] MEDS: METOPROLOL SUCC 25MG EXT REL TAB PO SCH (08:13)
[2017-06-25] MEDS: AMOXICILLIN/CLAVULANATE TAB 875 MG TAB PO SCH ×2 (08:13→17:58)
[2017-06-25] MEDS: CYANOCOBALAMIN 500 MCG TAB (VIT B-12) PO SCH (08:13)
[2017-06-25] MEDS: PANTOprazole SOD 40 MG TAB PO SCH ×2 (08:14→20:40)
[2017-06-25 08:19] LABS: ANISOCYTOSIS PRESENT; BASO % 0.2 %; BASO ABS # 0.01 K/uL (0-0.2); COMPLETE YES; EOS % 1.3 %; IG% 0.4 %; LYMPH % 8.6 %; LYMPH ABS # 0.46 K/uL (1.2-3.4); MONO % 9.9 %; NEUT % 79.6 %
--- NOTE | 2017-06-25 08:52 | Gastroenterology Progress Note ---
Progress Note Date of Service: Jun 25, 2017 Subjective Pt evaluation today including: conversation w/ patient, physical exam, chart review, lab review Pt was evaluated this AM. Chart reviewed. GI asked to re-evaluated given drop in H&H requiring another transfusion. No melena or BRB on 06/22 , 06/23. Had s BM on 06/24, there was stool present and some dark clots per patient. He tells me he has not had a BM yet today. He is not interested in another EGD/Colonoscopy at this time given his symptoms are his "normal." No further epistaxis, packing in place in left nare. No fever, chills, CP, SOB, abdominal pain, nausea, vomiting. Review of Systems Constitutional: No fever, No chills Respiratory: No cough, No shortness of breath Cardiac: No chest pain, No edema Abdomen: + GI bleeding (formed stool yesterday with some clots), No pain, No nausea, No vomiting, No diarrhea, No constipation Medications Current Inpatient Medications Medications (Trade) Dose Ordered Sig/Lesly Route Start Time Stop Time Status Last Admin Dose Admin Ondansetron HCl (Zofran Inj) 4 mg Q6H PRN IV 06/23/17 02:30 07/23/17 02:29 Acetaminophen (Tylenol Tab) 650 mg Q4H PRN PO 06/23/17 03:30 07/23/17 03:29 06/24/17 03:05 650 MG Cyanocobalamin (Vitamin B-12 Tab) 500 mcg DAILY PO 06/23/17 09:00 07/23/17 08:59 06/24/17 07:33 500 MCG Docusate Sodium (coLACE CAP) 100 mg BID PO 06/23/17 09:00 07/23/17 08:59 06/24/17 07:33 100 MG Metoprolol Succinate (Toprol Xl Tab) 25 mg DAILY PO 06/23/17 09:00 07/23/17 08:59 06/24/17 07:34 25 MG Miscellaneous Information (Order Awaiting Action) 1 ea QS N/A 06/23/17 08:00 07/23/17 07:59 Insulin Glargine (Lantus Solostar Pen) Blood sugar Lantus... QPM SC 06/23/17 21:00 07/23/17 20:59 06/24/17 21:12 14 UNITS Insulin Aspart (novoLOG ASPART) SLIDING SCALE G... ACHS SC 06/23/17 07:00 07/23/17 06:59 06/24/17 21:11 2 UNITS Glucose (Glucose 40% Gel) 15-30 GRAMS 15 GRAMS... UD PRN PO 06/23/17 03:45 07/23/17 03:44 Glucose (Glucose Chew Tab) 4-8 Tablets 4 Tabl... UD PRN PO 06/23/17 03:45 07/23/17 03:44 Dextrose (Dextrose 50% 50ML Syringe) 25-50ML OF 50% DW IV FOR... UD PRN IV 06/23/17 03:45 07/23/17 03:44 Glucagon (Glucagon Inj) 1 mg UD PRN SQ 06/23/17 03:45 07/23/17 03:44 Pantoprazole Sodium (Protonix Tab) 40 mg BID PO 06/23/17 09:00 07/23/17 08:59 06/24/17 21:13 40 MG Ranitidine HCl 50 mg/Dextrose 102 ml @ 200 mls/hr Q12 IV 06/23/17 09:00 07/23/17 08:59 06/24/17 21:22 200 MLS/HR Amoxicillin/ Clavulanate Potassium (Augmentin Tab) 875 mg BIDM PO 06/23/17 16:45 07/03/17 16:44 06/24/17 17:35 875 MG Atorvastatin Calcium (Lipitor Tab) 40 mg QAM PO 06/25/17 09:00 07/25/17 08:59 Objective Vital Signs Date Time Temp Pulse Resp B/P (MAP) Pulse Ox O2 Delivery O2 Flow Rate FiO2 06/25/17 07:39 36.8 85 20 144/84 (104) 92 Room Air 06/25/17 04:00 Room Air 06/25/17 04:00 36.7 80 18 155/83 (107) 93 Room Air 06/24/17 23:59 Room Air 06/24/17 23:05 36.8 82 18 159/88 (111) 96 Room Air 06/24/17 20:00 Room Air 06/24/17 18:45 36.8 83 18 149/78 (101) 95 Room Air 06/24/17 16:00 Room Air 06/24/17 15:47 36.3 70 19 160/87 (111) 92 Room Air 06/24/17 12:00 93 Room Air 3.0 06/24/17 12:00 36.5 82 20 169/83 94 06/24/17 12:00 36.8 82 18 138/72 (94) 95 Room Air 06/24/17 10:54 36.4 84 18 165/89 06/24/17 10:00 36.5 90 20 139/75 94 06/24/17 09:30 36.5 82 18 130/74 94 06/24/17 09:14 36.8 85 20 125/77 94 06/24/17 08:59 36.4 80 20 128/75 98 Physical Exam General Appearance: no apparent distress Eyes: PERRL ENT: hearing grossly normal Neck: supple Respiratory/Chest: lungs clear Cardiovascular: regular rate, rhythm Abdomen: normal bowel sounds, non tender, soft, no organomegaly Neurologic/Psych: alert, normal mood/affect, oriented x 3 Skin: normal color Laboratory Results Last 24 Hours Test 06/24/17 11:36 06/24/17 14:03 06/24/17 16:23 06/24/17 20:41 Bedside Glucose 213 mg/dl 225 mg/dl 260 mg/dl White Blood Count 6.01 K/uL Red Blood Count 2.58 M/uL Hemoglobin 7.9 g/dL Hematocrit 24.4 % Mean Corpuscular Volume 94.6 fL Mean Corpuscular Hemoglobin 30.6 pg Mean Corpuscular Hemoglobin Concent 32.4 g/dl Platelet Count 50 K/uL Mean Platelet Volume 10.4 fL Neutrophils (%) (Auto) 84.9 % Lymphocytes (%) (Auto) 6.2 % Monocytes (%) (Auto) 7.2 % Eosinophils (%) (Auto) 1.0 % Basophils (%) (Auto) 0.2 % Neutrophils # (Auto) 5.11 K/uL Lymphocytes # (Auto) 0.37 K/uL Monocytes # (Auto) 0.43 K/uL Eosinophils # (Auto) 0.06 K/uL Basophils # (Auto) 0.01 K/uL RDW Standard Deviation 51.6 fL RDW Coefficient of Variation 15.1 % Immature Granulocyte % (Auto) 0.5 % Immature Granulocyte # (Auto) 0.03 K/uL Red Blood Cell Morphology Unremarkable Test 06/24/17 21:00 06/25/17 06:40 06/25/17 07:18 White Blood Count 6.11 K/uL 5.38 K/uL Red Blood Count 2.64 M/uL 2.42 M/uL Hemoglobin 7.9 g/dL 7.6 g/dL Hematocrit 25.0 % 22.6 % Mean Corpuscular Volume 94.7 fL 93.4 fL Mean Corpuscular Hemoglobin 29.9 pg 31.4 pg Mean Corpuscular Hemoglobin Concent 31.6 g/dl 33.6 g/dl Platelet Count 51 K/uL 54 K/uL Mean Platelet Volume 9.9 fL 10.4 fL Neutrophils (%) (Auto) 83.4 % 79.6 % Lymphocytes (%) (Auto) 6.2 % 8.6 % Monocytes (%) (Auto) 8.7 % 9.9 % Eosinophils (%) (Auto) 1.0 % 1.3 % Basophils (%) (Auto) 0.2 % 0.2 % Neutrophils # (Auto) 5.10 K/uL 4.29 K/uL Lymphocytes # (Auto) 0.38 K/uL 0.46 K/uL Monocytes # (Auto) 0.53 K/uL 0.53 K/uL Eosinophils # (Auto) 0.06 K/uL 0.07 K/uL Basophils # (Auto) 0.01 K/uL 0.01 K/uL RDW Standard Deviation 51.5 fL 52.1 fL RDW Coefficient of Variation 15.1 % 15.1 % Immature Granulocyte % (Auto) 0.5 % 0.4 % Immature Granulocyte # (Auto) 0.03 K/uL 0.02 K/uL Anisocytosis PRESENT PRESENT Bedside Glucose 182 mg/dl Absolute Reticulocyte Count 0.05 10^6/uL Percent Reticulocyte Count 2.0 % Lactate Dehydrogenase 146 U/L Assessment and Plan Patient is a 81 year old male w/ vonWillebrand admitted for acute on chronic anemia secondary to epistaxis s/p packing and anemia with HGB 6.9 --> 1 unit -- > 7.2 --> 6.8 --> 1 unit --> 7.6 He has a history of chronic GI blood loss with intermittent melena and BRBPR. This has been evaluated x 5 times over the course of his life, work up including EGD, colonoscopy and VCE without any source of GIB identified. Pt tells me his last procedures were completed at [facility] and were 1-2 years ago - they were normal per pt. Differentials diverticular, AVM, colonic polyp, epistaxis etc. Pt is currently not agreeable to an EGD/Colonoscopy due to his recent workup since his symptoms are at this baseline. EGD/Colonoscopy would likely be low yield given recent scopes without any identifiable source. He typically receives his GI care through [facility]. Trend H&H Monitor stools Transfuse PRN Stool cx, stool c.diff No NSAIDs PO PPI BID Given his underlying coagulopathy and extensive and unrewarding prior GI workups , would defer endoscopic evaluation at this time. He can follow up with his educational institution president as an outpatient to re-discuss outpatient EGD/Colonoscopy ATTESTATION: I have performed a history and physical examination of this patient and reviewed the electronic record. Specifically, on physical examination there is no sign of active GI bleeding. I have discussed the case with NORMA Walden. The above note reflects my findings, conclusions, and recommendations. Edy Collazo MD
[2017-06-25] MEDS ORDERED: ATORVASTATIN 40 MG TAB PO SCH (09:00)
[2017-06-25] MEDS: RANITIDINE IV 50 MG in DEXTROSE 5% 100ML 100 ML IV SCH (09:00)
[2017-06-25 11:00] LABS: HEMATOCRIT 24.9 % (42-52); MEAN CELL VOLUME 95.8 fL (80-100); MEAN CORPUSCULAR HEMOGLOBIN 29.6 pg (25-34); WHITE BLOOD COUNT 6.12 K/uL (4.8-10.8)
[2017-06-25 11:05] LABS: MEAN CORPUSCULAR HGB CONC 30.9 g/dl (32-36); MEAN PLATELET VOLUME 9.9 fL (7.4-10.4); PLATELET COUNT 50 K/uL (130-400)
[2017-06-25 11:23] LABS: BASO % 0.2 %; BASO ABS # 0.01 K/uL (0-0.2); EOS % 1.1 %; HYPOCHROMIA PRESENT; IG% 0.3 %; IPF 6.7 % (0.9-8.3); LYMPH % 5.6 %; LYMPH ABS # 0.34 K/uL (1.2-3.4); MONO % 7.4 %; NEUT % 85.4 %
[2017-06-25 11:29] LABS: COMPLETE YES
--- NOTE | 2017-06-25 15:46 | Ears,Nose,Throat Progress Note ---
Progress Note Date of Service Jun 25, 2017. Subjective Pt evaluation today including: conversation w/ patient, conversation w/ family , physical exam, chart review 81 yo male with left epistaxis. Primary team called today to let me know the pack placed by [facility] was half way out of his nose. No epistaxis since his arrival earlier this week. Objective Vital Signs Date Time Temp Pulse Resp B/P (MAP) Pulse Ox O2 Delivery O2 Flow Rate FiO2 06/25/17 12:00 Room Air 06/25/17 11:24 36.6 89 16 150/80 (103) 94 Room Air 06/25/17 08:00 Room Air 06/25/17 07:39 36.8 85 20 144/84 (104) 92 Room Air 06/25/17 04:00 Room Air 06/25/17 04:00 36.7 80 18 155/83 (107) 93 Room Air 06/24/17 23:59 Room Air 06/24/17 23:05 36.8 82 18 159/88 (111) 96 Room Air 06/24/17 20:00 Room Air 06/24/17 18:45 36.8 83 18 149/78 (101) 95 Room Air 06/24/17 16:00 Room Air 06/24/17 15:47 36.3 70 19 160/87 (111) 92 Room Air Physical Exam General Appearance: WD/WN, no apparent distress Eyes: normal inspection, PERRL ENT: pharynx normal (no blood), + pertinent finding (left nare with balloon pack half way out the nose. This was removed. After removal, using headlight and suction, the old clot was removed. No active bleeding. No obvious prominent vessels. At this point Michael seal was placed into the left nare. Patient tolerated well. ) Neck: supple, no adenopathy Notes: PROCEDURE Nasal endoscopy was performed which revealed no evidence of active bleeding anteriorly or posteriorly on each side. Bilateral middle meati were clear. Nasopharynx without mass or lesion. Patient tolerated procedure well. Laboratory Results Last 24 Hours Test 06/24/17 16:23 06/24/17 20:41 06/24/17 21:00 06/25/17 06:40 Bedside Glucose 225 mg/dl 260 mg/dl 182 mg/dl White Blood Count 6.11 K/uL Red Blood Count 2.64 M/uL Hemoglobin 7.9 g/dL Hematocrit 25.0 % Mean Corpuscular Volume 94.7 fL Mean Corpuscular Hemoglobin 29.9 pg Mean Corpuscular Hemoglobin Concent 31.6 g/dl Platelet Count 51 K/uL Mean Platelet Volume 9.9 fL Neutrophils (%) (Auto) 83.4 % Lymphocytes (%) (Auto) 6.2 % Monocytes (%) (Auto) 8.7 % Eosinophils (%) (Auto) 1.0 % Basophils (%) (Auto) 0.2 % Neutrophils # (Auto) 5.10 K/uL Lymphocytes # (Auto) 0.38 K/uL Monocytes # (Auto) 0.53 K/uL Eosinophils # (Auto) 0.06 K/uL Basophils # (Auto) 0.01 K/uL RDW Standard Deviation 51.5 fL RDW Coefficient of Variation 15.1 % Immature Granulocyte % (Auto) 0.5 % Immature Granulocyte # (Auto) 0.03 K/uL Anisocytosis PRESENT Test 06/25/17 07:18 06/25/17 10:36 White Blood Count 5.38 K/uL 6.12 K/uL Red Blood Count 2.42 M/uL 2.60 M/uL Hemoglobin 7.6 g/dL 7.7 g/dL Hematocrit 22.6 % 24.9 % Mean Corpuscular Volume 93.4 fL 95.8 fL Mean Corpuscular Hemoglobin 31.4 pg 29.6 pg Mean Corpuscular Hemoglobin Concent 33.6 g/dl 30.9 g/dl Platelet Count 54 K/uL 50 K/uL Mean Platelet Volume 10.4 fL 9.9 fL Neutrophils (%) (Auto) 79.6 % 85.4 % Lymphocytes (%) (Auto) 8.6 % 5.6 % Monocytes (%) (Auto) 9.9 % 7.4 % Eosinophils (%) (Auto) 1.3 % 1.1 % Basophils (%) (Auto) 0.2 % 0.2 % Neutrophils # (Auto) 4.29 K/uL 5.23 K/uL Lymphocytes # (Auto) 0.46 K/uL 0.34 K/uL Monocytes # (Auto) 0.53 K/uL 0.45 K/uL Eosinophils # (Auto) 0.07 K/uL 0.07 K/uL Basophils # (Auto) 0.01 K/uL 0.01 K/uL RDW Standard Deviation 52.1 fL 51.8 fL RDW Coefficient of Variation 15.1 % 15.0 % Immature Granulocyte % (Auto) 0.4 % 0.3 % Immature Granulocyte # (Auto) 0.02 K/uL 0.02 K/uL Anisocytosis PRESENT Absolute Reticulocyte Count 0.05 10^6/uL Percent Reticulocyte Count 2.0 % Lactate Dehydrogenase 146 U/L Immature Platelet Fraction 6.7 % Hypochromasia PRESENT Peripheral Blood Smear Path Consult Assessment and Plan 81 yo male with von Willebrand disease, left sided epistaxis controlled with pack placed at [place] ED who is anemic - balloon pack removed (basically was out of the nose) It was an anterior balloon pack - absorbable packing (ie does not need removed) and floseal placed - no further ENT intervention at this time
--- NOTE | 2017-06-25 15:48 | Progress Note ---
Internal Med Progress Note Date of Service: Jun 25, 2017. Provider Documentation: SUBJECTIVE: patient reports clot in stool on bowel movement yesterday. denies blood from mouth or stool. left nostril Rhino Rock packing is partially dislodged OBJECTIVE: General: no acute distress, speaking in full sentences Head: normocephalic, atraumatic Eyes: EOMI, sclerae normal Nose: left nostril Rhino [place] packing is partially dislodged Lungs: CTABL, no respiratory distress, no accessory muscle use Heart: regular and heart rate controlled, no JVD, + systolic murmur (III/ systolic murmur left sternal border), Abdomen: soft, nontender, + bowel sounds Extremities: no swelling Neuro: no focal deficits ASSESSMENT & PLAN: Anemia 81 year old M with PMH of of recurrent anemia, requiring multiple transfusions over the years with underlying von Willebrand's disease and 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 Patient evaluated by ENT with plans to keep rhino rock packing in place for now. GI have been consulted because patient has had history of multiple GI bleeds and patient reported that he has had clots in stool. Repeat CBC this evening on 06/23/17 as 7.6. In AM of 06/24/17 Hgb once again lowered to 6.8. Another unit of PRBC transfused and CBC repeat 7.9. The Hgb on AM of 06/25/17 is 7.6 and afternoon is 7.7 along with labs for peripheral smear, immature platelet fraction, VWF factor (Von Willebrand factor) , VWF factor activity, VWF antigen, VWF multimer as per discussion with Hemoncology doctor Dillan. As per Hemoncology, VWF studies from [facility] are send out labs and often take time before results are processed. Hemoncology suggested that patient should be transferred to a tertiary care center that would be able to process the above VFW labs quickly so that if patient needed VFW infusions then that lab information would be able to guide therapy. Patient had followed with hemoncology at [facility] with Sohan Younger but apparently that medical center also would not be able to process the labs quickly as well. Call was made to [facility] transfer center for [facility] hospitals in [place] [phone] and was informed that hospitals such as [facility] and [facility] would have the needed lab capacities. However patient declined transfer after the benefits was discussed with him. VON WILLEBRAND'S DISEASE Received DDAVP in [facility] ED Hemoncology at [facility] consulted, await further recommendations THROMBOCYTOPENIA, chronic. GI history as per recent GI note "history of chronic GI blood loss with intermittent melena and BRBPR. This has been evaluated x 5 times over the course of his life, work up including EGD, colonoscopy and VCE without any source of GIB identified. Pt tells me his last procedures were completed at [place] and were 1-2 years ago - they were normal per pt. Differentials diverticular, AVM, colonic polyp, epistaxis etc. Pt is currently not agreeable to an EGD/Colonoscopy due to his recent workup since his symptoms are at this baseline. EGD/Colonoscopy would likely be low yield given recent scopes without any identifiable source. He typically receives his GI care through [facility]. Trend H&H Monitor stools Transfuse PRN Stool cx, stool c.diff No NSAIDs PO PPI BID Given his underlying coagulopathy and extensive and unrewarding prior GI workups , would defer endoscopic evaluation at this time. He can follow up with his thread laster as an outpatient to re-discuss outpatient EGD/Colonoscopy" CORONARY ARTERY DISEASE No anginal symptoms. No antiplatelet drugs due to von Willebrand's disease and thrombocytopenia. start statin Continue metoprolol. CHRONIC ATRIAL FIBRILLATION Usually rate-controlled on metoprolol. Tachycardic in ED- should improve with transfusion. No anticoagulants due to von Willebrand's disease and thrombocytopenia. HYPERTENSION Continue metoprolol. Hold valsartan until renal function improves. Follow and titrate Rx. COPD On home O2. Continue Anoro Ellipta or formulary equivalent. 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 Continue home O2. ACUTE KIDNEY INJURY Serum creatinine 2.5 on admission compared to baseline of 1.5 on 05/13/12. Creatinine downtrending to 1.9 CHELSEA could be secondary to volume depletion and / or anemia. Hold furosemide (although may be necessary to resume after transfusion). Avoid potential nephrotoxins when able DM TYPE 2, UNCONTROLLED History diabetes mellitus type 2 on insulin. Blood sugars fluctuating at home. Random blood sugar in ED 342. Missed dose of Lantus due to ED visit. Check Hgb 1C. Lantus / NovoLog per protocol. VTE PROPHYLAXIS History of pulmonary emboli, s/p IVC filter. No anticoagulants due to von Willebrand's disease and thrombocytopenia. SCD's. Ambulate. RESUSCITATION STATUS Discussed with patient. No living will. Full code. DISPOSITION Expected discharge to home when hemodynamically stable and Hgb stable Medical follow-up with Dr. Hammer. Vital Signs: Date Time Temp Pulse Resp B/P (MAP) Pulse Ox O2 Delivery O2 Flow Rate FiO2 06/25/17 12:00 Room Air 06/25/17 11:24 36.6 89 16 150/80 (103) 94 Room Air 06/25/17 08:00 Room Air 06/25/17 07:39 36.8 85 20 144/84 (104) 92 Room Air 06/25/17 04:00 Room Air 06/25/17 04:00 36.7 80 18 155/83 (107) 93 Room Air 06/24/17 23:59 Room Air 06/24/17 23:05 36.8 82 18 159/88 (111) 96 Room Air 06/24/17 20:00 Room Air 06/24/17 18:45 36.8 83 18 149/78 (101) 95 Room Air 06/24/17 16:00 Room Air Lab Results: Results Past 24 Hours Test 06/24/17 16:23 06/24/17 20:41 06/24/17 21:00 06/25/17 06:40 Range/Units Bedside Glucose 225 260 182 70-99 mg/dl White Blood Count 6.11 4.8-10.8 K/uL Red Blood Count 2.64 4.7-6.1 M/uL Hemoglobin 7.9 14.0-18.0 g/dL Hematocrit 25.0 42-52 % Mean Corpuscular Volume 94.7 80-100 fL Mean Corpuscular Hemoglobin 29.9 25-34 pg Mean Corpuscular Hemoglobin Concent 31.6 32-36 g/dl Platelet Count 51 130-400 K/uL Mean Platelet Volume 9.9 7.4-10.4 fL Neutrophils (%) (Auto) 83.4 % Lymphocytes (%) (Auto) 6.2 % Monocytes (%) (Auto) 8.7 % Eosinophils (%) (Auto) 1.0 % Basophils (%) (Auto) 0.2 % Neutrophils # (Auto) 5.10 1.4-6.5 K/uL Lymphocytes # (Auto) 0.38 1.2-3.4 K/uL Monocytes # (Auto) 0.53 0.11-0.59 K/uL Eosinophils # (Auto) 0.06 0-0.5 K/uL Basophils # (Auto) 0.01 0-0.2 K/uL RDW Standard Deviation 51.5 36.4-46.3 fL RDW Coefficient of Variation 15.1 11.5-14.5 % Immature Granulocyte % (Auto) 0.5 % Immature Granulocyte # (Auto) 0.03 0.00-0.02 K/uL Anisocytosis PRESENT Test 06/25/17 07:18 06/25/17 10:36 Range/Units White Blood Count 5.38 6.12 4.8-10.8 K/uL Red Blood Count 2.42 2.60 4.7-6.1 M/uL Hemoglobin 7.6 7.7 14.0-18.0 g/dL Hematocrit 22.6 24.9 42-52 % Mean Corpuscular Volume 93.4 95.8 80-100 fL Mean Corpuscular Hemoglobin 31.4 29.6 25-34 pg Mean Corpuscular Hemoglobin Concent 33.6 30.9 32-36 g/dl Platelet Count 54 50 130-400 K/uL Mean Platelet Volume 10.4 9.9 7.4-10.4 fL Neutrophils (%) (Auto) 79.6 85.4 % Lymphocytes (%) (Auto) 8.6 5.6 % Monocytes (%) (Auto) 9.9 7.4 % Eosinophils (%) (Auto) 1.3 1.1 % Basophils (%) (Auto) 0.2 0.2 % Neutrophils # (Auto) 4.29 5.23 1.4-6.5 K/uL Lymphocytes # (Auto) 0.46 0.34 1.2-3.4 K/uL Monocytes # (Auto) 0.53 0.45 0.11-0.59 K/uL Eosinophils # (Auto) 0.07 0.07 0-0.5 K/uL Basophils # (Auto) 0.01 0.01 0-0.2 K/uL RDW Standard Deviation 52.1 51.8 36.4-46.3 fL RDW Coefficient of Variation 15.1 15.0 11.5-14.5 % Immature Granulocyte % (Auto) 0.4 0.3 % Immature Granulocyte # (Auto) 0.02 0.02 0.00-0.02 K/uL Anisocytosis PRESENT Absolute Reticulocyte Count 0.05 0.02-0.10 10^6/uL Percent Reticulocyte Count 2.0 0.5-2.0 % Lactate Dehydrogenase 146 87-241 U/L Immature Platelet Fraction 6.7 0.9-8.3 % Hypochromasia PRESENT Peripheral Blood Smear Path Consult
--- NOTE | 2017-06-25 19:24 | Medical Consult ---
Consultation Date of Consultation: Jun 25, 2017. Attending Physician: Rajiv Cabrera M.D. Reason for Consultation: history of vWD, admitted for epistaxis History of Present Illness 81 year old male with history vWD and history of GI bleed and epistaxis. Patient states that he has long history of recurrent epistaxis since childhood. He used marquez fat in the past to control his epistaxis He states that he went to hospital in [place] since his epistaxis was more severe than usual He received a dose of DDAVP Patient states that prior to that he had never been tested for DDAVP I spoke to his lumber press operator Dr Mirza who said patient has type 2M vWD but he has never treated him with DDAVP or humate P - recently started seeing the patient and he said at his hospital in [place] they cannot get timely vWF levels and recommended consider transfer the patient to tertiary center such as [facility] I spoke to Dr Cabrera and recommended transfer to a tertiary center where timely vWF levels and factor VIII level can be obtained but the he said patient declined at that time so I recommended to order stat levels for vWF activity, antigen, factor VIII and vWF multimer study. Patient feels ok. He had the packing removed from his nostril. No bright red blood from nostril but has mild rhinorrhea - slight pink occasionally He said the patient had thrombocytopenia in the 80's when he saw patient The patient states that he has been requiring frequent transfusions every few months recently due to GI bleeding He states that he prior to admission he noticed bright red blood in stool He has received 2 units PRBC transfusions Past Medical/Surgical History PMH: CAD, anemia, GI bleed, A fib, VWD , history of PE PSH: EGD, colonoscopy. fem pop aneurysm, cardiac cath, orhto surgery, AAA repair Medical Problems: (1) Anemia Status: Acute (2) Epistaxis Status: Acute (3) GI bleed Status: Acute Family History Bleeding disorder FATHER DAUGHTER DAUGHTER SON GRANDFATHER GRANDMOTHER Breast cancer MOTHER Social History Smoking Status: Former Smoker Smokeless Tobacco Use: Yes Alcohol Use: 1 glass of wine daily Marital Status: Housing Status: lives with family Occupation Status: employed Allergies Coded Allergies: No Known Allergies (Verified , 06/23/17) Current Inpatient Medications Current Inpatient Medications Medications (Trade) Dose Ordered Sig/Lesly Route Start Time Stop Time Status Last Admin Dose Admin Ondansetron HCl (Zofran Inj) 4 mg Q6H PRN IV 06/23/17 02:30 07/23/17 02:29 Acetaminophen (Tylenol Tab) 650 mg Q4H PRN PO 06/23/17 03:30 07/23/17 03:29 06/24/17 03:05 650 MG Cyanocobalamin (Vitamin B-12 Tab) 500 mcg DAILY PO 06/23/17 09:00 07/23/17 08:59 06/25/17 08:13 500 MCG Docusate Sodium (coLACE CAP) 100 mg BID PO 06/23/17 09:00 07/23/17 08:59 06/25/17 08:13 100 MG Metoprolol Succinate (Toprol Xl Tab) 25 mg DAILY PO 06/23/17 09:00 07/23/17 08:59 06/25/17 08:13 25 MG Miscellaneous Information (Order Awaiting Action) 1 ea QS N/A 06/23/17 08:00 07/23/17 07:59 Insulin Glargine (Lantus Solostar Pen) Blood sugar Lantus... QPM SC 06/23/17 21:00 07/23/17 20:59 06/24/17 21:12 14 UNITS Insulin Aspart (novoLOG ASPART) SLIDING SCALE G... ACHS SC 06/23/17 07:00 07/23/17 06:59 06/25/17 13:02 4 UNITS Glucose (Glucose 40% Gel) 15-30 GRAMS 15 GRAMS... UD PRN PO 06/23/17 03:45 07/23/17 03:44 Glucose (Glucose Chew Tab) 4-8 Tablets 4 Tabl... UD PRN PO 06/23/17 03:45 07/23/17 03:44 Dextrose (Dextrose 50% 50ML Syringe) 25-50ML OF 50% DW IV FOR... UD PRN IV 06/23/17 03:45 07/23/17 03:44 Glucagon (Glucagon Inj) 1 mg UD PRN SQ 06/23/17 03:45 07/23/17 03:44 Pantoprazole Sodium (Protonix Tab) 40 mg BID PO 06/23/17 09:00 07/23/17 08:59 06/25/17 08:14 40 MG Amoxicillin/ Clavulanate Potassium (Augmentin Tab) 875 mg BIDM PO 06/23/17 16:45 07/03/17 16:44 06/25/17 08:13 875 MG Atorvastatin Calcium (Lipitor Tab) 40 mg QAM PO 06/25/17 09:00 07/25/17 08:59 06/25/17 08:14 40 MG Review of Systems Constitutional: + weight loss, + fatigue (mild), No fever, No chills, No sweats ENT: + unusual epistaxis, + nasal symptoms, No hearing loss, No sore throat Respiratory: + dyspnea on exertion (states that he uses oxygen at home), No cough, No sputum, No wheezing, No shortness of breath, No dyspnea at rest Cardiovascular: No chest pain, No orthopnea, No edema Abdomen: No pain, No nausea, No vomiting Musculoskeletal: No joint pain, No muscle pain, No swelling, No calf pain Genitourinary - Male: No hematuria, No dysuria Neurologic: No weakness Endocrine: No fatigue Hematologic / Lymphatic: + abnormal bleeding/bruising, No swollen lymph nodes Integumentary: No rash, No itch Physical Exam Date Time Temp Pulse Resp B/P (MAP) Pulse Ox O2 Delivery O2 Flow Rate FiO2 06/25/17 16:25 36.6 92 18 158/89 (112) 94 Room Air 06/25/17 16:00 Room Air 06/25/17 12:00 Room Air 06/25/17 11:24 36.6 89 16 150/80 (103) 94 Room Air 06/25/17 08:00 Room Air 06/25/17 07:39 36.8 85 20 144/84 (104) 92 Room Air 06/25/17 04:00 Room Air 06/25/17 04:00 36.7 80 18 155/83 (107) 93 Room Air 06/24/17 23:59 Room Air 06/24/17 23:05 36.8 82 18 159/88 (111) 96 Room Air 06/24/17 20:00 Room Air 06/24/17 18:45 36.8 83 18 149/78 (101) 95 Room Air General Appearance: WD/WN, no apparent distress Head: normocephalic, atraumatic Eyes: EOMI, sclerae normal Neck: supple, no adenopathy Respiratory/Chest: chest non-tender, no respiratory distress, + crackles (few crackles at bases) Cardiovascular: no edema, + irregularly irregular Abdomen/GI: normal bowel sounds, non tender, soft Extremities/Musculoskelatal: no calf tenderness, no pedal edema, non-tender Neurologic/Psych: no motor/sensory deficits (grossly), alert, normal mood/ affect, oriented x 3 Skin: warm/dry, + pertinent finding (old skin discoloration on back from ecchymosis - patient and his said this is from a fall from several months ago) Lymphatic: no adenopathy Laboratory Results Last 24 Hours Test 06/24/17 20:41 06/24/17 21:00 06/25/17 06:40 06/25/17 07:18 Bedside Glucose 260 mg/dl 182 mg/dl White Blood Count 6.11 K/uL 5.38 K/uL Red Blood Count 2.64 M/uL 2.42 M/uL Hemoglobin 7.9 g/dL 7.6 g/dL Hematocrit 25.0 % 22.6 % Mean Corpuscular Volume 94.7 fL 93.4 fL Mean Corpuscular Hemoglobin 29.9 pg 31.4 pg Mean Corpuscular Hemoglobin Concent 31.6 g/dl 33.6 g/dl Platelet Count 51 K/uL 54 K/uL Mean Platelet Volume 9.9 fL 10.4 fL Neutrophils (%) (Auto) 83.4 % 79.6 % Lymphocytes (%) (Auto) 6.2 % 8.6 % Monocytes (%) (Auto) 8.7 % 9.9 % Eosinophils (%) (Auto) 1.0 % 1.3 % Basophils (%) (Auto) 0.2 % 0.2 % Neutrophils # (Auto) 5.10 K/uL 4.29 K/uL Lymphocytes # (Auto) 0.38 K/uL 0.46 K/uL Monocytes # (Auto) 0.53 K/uL 0.53 K/uL Eosinophils # (Auto) 0.06 K/uL 0.07 K/uL Basophils # (Auto) 0.01 K/uL 0.01 K/uL RDW Standard Deviation 51.5 fL 52.1 fL RDW Coefficient of Variation 15.1 % 15.1 % Immature Granulocyte % (Auto) 0.5 % 0.4 % Immature Granulocyte # (Auto) 0.03 K/uL 0.02 K/uL Anisocytosis PRESENT PRESENT Absolute Reticulocyte Count 0.05 10^6/uL Percent Reticulocyte Count 2.0 % Lactate Dehydrogenase 146 U/L Test 06/25/17 10:36 06/25/17 11:17 06/25/17 16:25 White Blood Count 6.12 K/uL Red Blood Count 2.60 M/uL Hemoglobin 7.7 g/dL Hematocrit 24.9 % Mean Corpuscular Volume 95.8 fL Mean Corpuscular Hemoglobin 29.6 pg Mean Corpuscular Hemoglobin Concent 30.9 g/dl Platelet Count 50 K/uL Mean Platelet Volume 9.9 fL Neutrophils (%) (Auto) 85.4 % Lymphocytes (%) (Auto) 5.6 % Monocytes (%) (Auto) 7.4 % Eosinophils (%) (Auto) 1.1 % Basophils (%) (Auto) 0.2 % Neutrophils # (Auto) 5.23 K/uL Lymphocytes # (Auto) 0.34 K/uL Monocytes # (Auto) 0.45 K/uL Eosinophils # (Auto) 0.07 K/uL Basophils # (Auto) 0.01 K/uL RDW Standard Deviation 51.8 fL RDW Coefficient of Variation 15.0 % Immature Granulocyte % (Auto) 0.3 % Immature Granulocyte # (Auto) 0.02 K/uL Immature Platelet Fraction 6.7 % Hypochromasia PRESENT Peripheral Blood Smear Path Consult Bedside Glucose 292 mg/dl 269 mg/dl Assessment & Plan 81 year old male with vWD admitted with epistaxis and GI bleed and anemia He received PRBC transfusion He received 1 dose of DDVAP at [facility] I spoke to Dr Cabrera and recommended transfer to tertiary center since vWF levels cannot be obtained in a timely fashion - these labs are send out. Recommend monitor serial CBC every 6hrs and monitor for bleeding. Transfuse 1 unit of platelets if platelet count <50 He will need monitoring of vWF activity and factor VIII as well His baseline level prior to DDVAP or level after DDAVP at the outside hospital are not available. These weer sent to a reference lab today but not available I spoke with the patient and his family and they said other family members have been treated with DDAVP so they weer familiar with it but not familiar with humate P. He is willing to be transferred to [facility] if they will accept him The patient and his family are agreeable to transfer to tertiary center - his lumber press operator Dr Gomez also recommended transfer to a tertiary center where timely levels can be obtained for the factor VIII and vWF activity I discussed recommendations with Dr Cabrera Addendum: I called and spoke to Dr Buchanan at [facility] - she declined to accept this patient She felt that the patient should be at a tertiary center but said the patient would be best served in the [facility] system in the acute setting where he has been treated and following with hematology and where his factor levels can be obtained in timely fashion and baseline levels checked. Patient had declined Dr Cabrera transfer to [facility] earlier this morning but now states that he is wants to go to [facility]. She said they would also need to get factor levels to treat patient. Patient recalls that he was admitted at [facility] in [place] in the past and wants to be transferred there for further evaluation and management. He agrees to a unit of platelets if his platelet count is dropping <[address] Cabrera was present and also discussed with patient and agreed with transfer
--- NOTE | 2017-06-25 20:31 | Discharge Summary ---
Discharge Summary Date of Service Jun 25, 2017. Discharge Summary Admission Date: Jun 23, 2017 at 02:31 Discharge Date: Jun 25, 2017 Discharge Disposition: Acute care facility Principal Diagnosis: Von Willenbrand Deficiency history, history of hemophilia, Nose bleed, blood per rectum, thrombocytopenia Admission Information HPI (per Admitting provider): 81-year-old male from [place], followed by Dr. Hammer. History of coronary artery disease, chronic atrial fibrillation, von Willebrand' s disease, and other problems noted below. In recent years, he has had multiple episodes of anemia associated with heme- positive stools. He has undergone at least 3 EGDs, 2 colonoscopies, and capsule enteroscopy without an apparent source of bleeding. He has had intermittent episodes of epistaxis over the years, sometimes requiring electrocautery. Developed spontaneous epistaxis of left nostril last evening around 9 PM. He went to the ED at [facility]. Rhino Rocket was placed. Received DDAVP. Was found to be anemic. Patient has noted a small amount of rectal bleeding over the past few days. No abdominal pain, nausea, vomiting, hematemesis. He does not use any aspirin, NSAID's, or anticoagulants. Drinks one glass of wine per day. He is experiencing dyspnea on exertion, somewhat worse than baseline. No chest pain. Arrangements made for transfer to [facility] for further evaluation and management. . Physical Exam (per Admitting): General Appearance: WD/WN, no apparent distress Head: normocephalic, atraumatic Eyes: PERRL, EOMI, sclerae normal, + pertinent finding (conjunctivae pale) ENT: hearing grossly normal, + pertinent finding (Rhino Rocket left nostril) Neck: supple, no adenopathy, thyroid normal, trachea midline Respiratory/Chest: no respiratory distress, no accessory muscle use, + pertinent finding (few rales right base) Cardiovascular: no edema, no JVD, + systolic murmur (III/ systolic murmur left sternal border), + irregularly irregular, + abnormal peripheral pulses ( diminished pedal pulses) Abdomen/GI: normal bowel sounds, non tender, soft, no organomegaly, no pulsatile mass Extremities/Musculoskelatal: no calf tenderness, + pertinent finding (motor strenth upper and lower extremities intact) Neurologic/Psych: bagger meat II-XII nml as tested (PERRL, EOMI, no dysarthria, no aphasia, tongue midline), no motor/sensory deficits (motor strength upper and lower extremities intact), alert, normal mood/affect, oriented x 3 Skin: warm/dry, + pertinent finding (chronic venous stasis changes lower extremities) Lymphatic: no adenopathy (cervical) Hospital Course Anemia 81 year old M with PMH of of recurrent anemia, requiring multiple transfusions over the years with underlying von Willebrand's disease and 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 Patient evaluated by ENT with plans to keep rhino rock packing in place for now. GI have been consulted because patient has had history of multiple GI bleeds and patient reported that he has had clots in stool. Repeat CBC this evening on 06/23/17 as 7.6. In AM of 06/24/17 Hgb once again lowered to 6.8. Another unit of PRBC transfused and CBC repeat 7.9. The Hgb on AM of 06/25/17 is 7.6 and afternoon is 7.7 along with labs for peripheral smear, immature platelet fraction, VWF factor (Von Willebrand factor) , VWF factor activity, VWF antigen, VWF multimer as per discussion with Hemoncology doctor Dillan. As per Hemoncology, VWF studies from [facility] are send out labs and often take time before results are processed. Hemoncology suggested that patient should be transferred to a tertiary care center that would be able to process the above VFW labs quickly so that if patient needed VFW infusions then that lab information would be able to guide therapy. Patient had followed with hemoncology at [facility] with Sohan Younger but apparently that medical center also would not be able to process the labs quickly as well. Call was made to [facility] transfer center for [facility] in [place] [phone] and was informed that hospitals such as [facility] and [place] would have the needed lab capacities. However patient declined transfer after the benefits was discussed with him in the AM of 06/25/2017. Patient reconsidered transfer after re-discussion. Initially patient asked for [facility] but there was no accepting physician. [place] ([facility]) has accepting physician Dr. Benson who is of hemeoncology service. VON WILLEBRAND'S DISEASE Received DDAVP in [facility] ED Hemoncology at [facility] consulted THROMBOCYTOPENIA, chronic. may need platelet transfused if platelet levels less than 50 GI history as per recent GI note "history of chronic GI blood loss with intermittent melena and BRBPR. This has been evaluated x 5 times over the course of his life, work up including EGD, colonoscopy and VCE without any source of GIB identified. Pt tells me his last procedures were completed at [facility] and were 1-2 years ago - they were normal per pt. Differentials diverticular, AVM, colonic polyp, epistaxis etc. Pt is currently not agreeable to an EGD/Colonoscopy due to his recent workup since his symptoms are at this baseline. EGD/Colonoscopy would likely be low yield given recent scopes without any identifiable source. He typically receives his GI care through [facility]. Trend H&H Monitor stools Transfuse PRN Stool cx, stool c.diff No NSAIDs PO PPI BID Given his underlying coagulopathy and extensive and unrewarding prior GI workups , would defer endoscopic evaluation at this time. He can follow up with his leather scrubber as an outpatient to re-discuss outpatient EGD/Colonoscopy" CORONARY ARTERY DISEASE No anginal symptoms. No antiplatelet drugs due to von Willebrand's disease and thrombocytopenia. start statin Continue metoprolol. CHRONIC ATRIAL FIBRILLATION Usually rate-controlled on metoprolol. Tachycardic in ED- should improve with transfusion. No anticoagulants due to von Willebrand's disease and thrombocytopenia. HYPERTENSION Continue metoprolol. Hold valsartan until renal function improves. Follow and titrate Rx. COPD On home O2. Continue Anoro Ellipta or formulary equivalent. 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 Continue home O2. ACUTE KIDNEY INJURY Serum creatinine 2.5 on admission compared to baseline of 1.5 on 05/13/12. Creatinine downtrending to 1.9 CHELSEA could be secondary to volume depletion and / or anemia. Hold furosemide Avoid potential nephrotoxins when able DM TYPE 2, UNCONTROLLED History diabetes mellitus type 2 on insulin. Blood sugars fluctuating at home. Random blood sugar in ED 342. Missed dose of Lantus due to ED visit. Check Hgb 1C. Lantus / NovoLog per protocol. VTE PROPHYLAXIS History of pulmonary emboli, s/p IVC filter. No anticoagulants due to von Willebrand's disease and thrombocytopenia. SCD's. Ambulate. RESUSCITATION STATUS Discussed with patient. No living will. Full code. DISPOSITION patient to be transferred to [facility] in [facility] to [facility] Total time spent on discharge = This includes examination of the patient, discharge planning, medication reconciliation, and communication with other providers. Discharge Instructions patient to be transferred to [facility] in [facility] to [facility]
[2017-06-25 20:42] LABS: MEAN CELL VOLUME 95.8 fL (80-100); MEAN CORPUSCULAR HEMOGLOBIN 30.3 pg (25-34); RED BLOOD COUNT 2.61 M/uL (4.7-6.1); WHITE BLOOD COUNT 6.72 K/uL (4.8-10.8)
[2017-06-25] MEDS: INSULIN GLARGINE SOLOSTAR 100 UNITS/ML 3 ML PEN SC SCH (20:43)
[2017-06-25 20:47] LABS: MEAN CORPUSCULAR HGB CONC 31.6 g/dl (32-36); MEAN PLATELET VOLUME 10.6 fL (7.4-10.4); PLATELET COUNT 56 K/uL (130-400)
[2017-06-26] MEDS: ANORO ELLIPTA~ORDER AWAITING ACTION SCH
[2017-06-26 03:25] VITALS: BP 153/82; PULSE 88; TEMP 36.8; O2SAT 95
[2017-06-26 06:58] LABS: MEAN CELL VOLUME 94.3 fL (80-100); MEAN CORPUSCULAR HEMOGLOBIN 31.6 pg (25-34); MEAN CORPUSCULAR HGB CONC 33.5 g/dl (32-36); RED BLOOD COUNT 2.44 M/uL (4.7-6.1); WHITE BLOOD COUNT 5.65 K/uL (4.8-10.8)
[2017-06-26 07:01] LABS: MEAN PLATELET VOLUME 9.6 fL (7.4-10.4); PLATELET COUNT 49 K/uL (130-400)
[2017-06-26 07:20] LABS: COMPLETE YES; EOS % 1.2 %; IG% 0.5 %; LYMPH % 6.5 %; LYMPH ABS # 0.37 K/uL (1.2-3.4); MONO % 10.6 %; NEUT % 81.2 %
[2017-06-26 07:34] LABS: ALB/GLOB RATIO 1.2 (0.9-2); BUN/CREATININE RATIO 22.4 (10-20); CALCIUM 8.7 mg/dl (8.5-10.1); CREATININE 1.7 mg/dl (0.60-1.40); POTASSIUM 4.1 mmol/L (3.5-5.1)
[2017-06-26 07:39] VITALS: BP 141/91; PULSE 117; TEMP 36.6; O2SAT 92
[2017-06-26] MEDS: AMOXICILLIN/CLAVULANATE TAB 875 MG TAB PO SCH (07:47)
[2017-06-26] MEDS: INSULIN ASPART 100 UNITS/ML 3 ML PEN SC SCH (07:51)
--- NOTE | 2017-06-26 07:56 | Progress Note ---
Progress Note Date of Service Jun 26, 2017. Progress Note Patient seen at bedside eating breakfast. EMT/ambulance service at the bedside awaiting to take him to [facility]. Labs reviewed today with Hemoglobin stable at 7.7. Platelets about the same at 49. Discussed with the patient about the importance of going to [facility] for higher level of care because of hematological health issues.
[2017-06-30 18:03] LABS: APTT 31 sec (22-34); F8 ACT 109 % (50-180); RISTOCETIN COFACTOR** 4459X 21 % (42-200); VWF CONSULT Limited
== END 2017-06-26 07:45 | disposition short-term general hospital (02) | DRG 813 ==
LOC: EDBD 01:17 → C.EDA 01:21 → EEVIPCON 02:31 → C.2T 02:31 → ENRESERV 02:37 → C.2T 06-24 13:06
PROVIDERS: ADMIT Hospitalist; ATTEND Hospitalist
DX: D68.0 Von Willebrand disease (principal); N17.9 Acute kidney failure, unspecified; K62.5 Hemorrhage of anus and rectum; J96.11 Chronic respiratory failure with hypoxia; D50.0 Iron deficiency anemia secondary to blood loss (chronic); E86.9 Volume depletion, unspecified; R04.0 Epistaxis; D69.6 Thrombocytopenia, unspecified; E11.65 Type 2 diabetes mellitus with hyperglycemia; I25.10 Atherosclerotic heart disease of native coronary artery without angina pectoris; I48.2 Chronic atrial fibrillation; I10 Essential (primary) hypertension; J44.9 Chronic obstructive pulmonary disease, unspecified; R63.4 Abnormal weight loss; Z68.21 Body mass index [BMI] 21.0-21.9, adult; Z86.711 Personal history of pulmonary embolism; Z95.5 Presence of coronary angioplasty implant and graft; Z95.828 Presence of other vascular implants and grafts; Z87.891 Personal history of nicotine dependence; Z83.2 Family history of diseases of the blood and blood-forming organs and certain disorders involving the immune mechanism; Z79.4 Long term (current) use of insulin; Z79.899 Other long term (current) drug therapy